=== PATIENT | female | born 1950 | race Caucasian/White ===

== ENCOUNTER → 2020-02-20 | Outpatient (CLI) | payer MEDICARE ==
[2020-02-20 12:54] LABS: HCT 39.3 % (34.0-46.0); HGB 13.2 gm/dL (11.4-16.0); MCHC 33.6 g/dL (31.0-37.0); MCV 98.3 fL (80.0-100.0); Mean Platelet Volume 7.4; Platelet Count 192 k/uL (150-450); RDW 15.9 % (11.5-15.5); WBC 3.7 k/uL (3.8-10.6)
[2020-02-20 13:02] LABS: ALT 13 U/L (4-34); AST 20 U/L (14-36); African American GFR (CKD) >90 (>60 ml/min/1.73 sqM); Albumin 4.1 g/dL (3.5-5.0); Alkaline Phosphatase 102 U/L (38-126); Anion Gap 6 mmol/L; Blood Urea Nitrogen 14 mg/dL (7-17); Calcium 9.5 mg/dL (8.4-10.2); Carbon Dioxide 28 mmol/L (22-30); Chloride 102 mmol/L (98-107); Cholesterol 150 mg/dL (<200); Glucose 97 mg/dL (74-99); HDL Cholesterol 69 mg/dL (40-60); LDL Cholesterol,Calculated 55 mg/dL (0-99); Non-African American GFR(CKD) >90 (>60 ml/min/1.73 sqM); Potassium 4.4 mmol/L (3.5-5.1); Sodium 136 mmol/L (137-145); Total Bilirubin 0.6 mg/dL (0.2-1.3); Total Protein 6.2 g/dL (6.3-8.2); Triglycerides 131 mg/dL (<150)
[2020-02-20 13:04] LABS: INR 0.9 (<1.2); Partial Thromboplastin Time 23.3 sec (22.0-30.0); Prothrombin Time 9.9 sec (9.0-12.0)
[2020-02-20 13:09] LABS: Appearance,Urine Clear (Clear); Bilirubin,Urine Negative (Negative); Blood,Urine Negative (Negative); Color,Urine Light Yellow; Glucose,Urine (UA) Negative (Negative); Ketones,Urine Negative (Negative); Leukocyte Esterase,Urine Negative (Negative); Nitrite,Urine Negative (Negative); Protein,Urine Negative (Negative); Specific Gravity,Urine 1.005 (1.001-1.035); Urobilinogen,Urine <2.0 mg/dL (<2.0)
[2020-02-20 13:18] LABS: T4, Free (Free Thyroxine) 1.01 ng/dL (0.78-2.19)
== END | disposition home or self-care (01) ==
LOC: LABPAT 11:46
PROVIDERS: ATTEND Orthopaedic Surgery
DX: Z01.818 Encounter for other preprocedural examination (principal); M16.11 Unilateral primary osteoarthritis, right hip; I25.10 Atherosclerotic heart disease of native coronary artery without angina pectoris; E55.9 Vitamin D deficiency, unspecified; Z13.220 Encounter for screening for lipoid disorders; E05.90 Thyrotoxicosis, unspecified without thyrotoxic crisis or storm; Z01.812 Encounter for preprocedural laboratory examination
CPT/HCPCS: 80053; 80061; 81003; 82306; 84439; 84443; 85027; 85610; 85730; 87070

== ENCOUNTER 2020-02-28 05:54 | Day surgery (SDC) | payer MEDICARE ==
[2020-02-24 10:06] VITALS: BMI 35.7
[~2020-02-28 05:54] MED LIST: ACETAMINOPHEN TAB 500 MG TAB PO ONE; DEXAMETHASONE SOD PHOSPHATE 10 MG/ML 1 ML VIAL IV ONE; GABAPENTIN 300 MG CAP PO ONE; HYDROmorphone 0.5 MG/0.5 ML SYRINGE IVP PRN; LIDOCAINE 1% (10MG/ML) FOR IV START INTRADERMA PRN; MELOXICAM 7.5 MG TAB PO ONE; MIDAZOLAM 2 MG/2 ML VIAL IV PRN; ONDANSETRON 4 MG/2 ML VIAL IVP ONE; TRANEXAMIC ACID 1,000 MG in SODIUM CHLORIDE 0.9% 100 ML IVPB ONE
[2020-02-28] MEDS: LACTATED RINGERS 1,000 ML IV SCH (06:30)
[2020-02-28] MEDS ORDERED: HEPARIN SODIUM,PORCINE 10,000 UNIT/ML 1 ML VIAL ONE (06:52)
[2020-02-28] MEDS ORDERED: SODIUM CHLORIDE 0.9% IRRIG 1,000 ML BTL IRRIGATION ONE (06:52)
[2020-02-28] MEDS ORDERED: ceFAZolin 3,000 MG in SODIUM CHLORIDE 0.9% IRRIGATIO 3,000 ML IRRIGATION ONE (06:57)
[2020-02-28] MEDS: ROPIVACAINE 246.25 MG, EPINEPHrine 0.5 MG, KETOROLAC 30 MG, cloNIDine HCL/PF 80 MCG, WA... MISCELLANE ONE ×10 (07:29→08:06)
[2020-02-28] MEDS ORDERED: LACTATED RINGERS 1,000 ML IV ONE (08:24)
--- NOTE | 2020-02-28 08:38 | P.OP ---
Date of Procedure: 02/28/20 Preoperative Diagnosis: Severe osteoarthritis right hip Postoperative Diagnosis: Severe osteoarthritis right hip Procedure(s) Performed: Right total hip arthroplasty with a direct anterior approach Implants: Montero and nephew Polarstem size 2 standard Montero & Nephew R3, 3 hole acetabular shell, 48 mm Montero & Nephew reflection 6.5 mm cancellus screw, 20 mm 2 Montero & Nephew R3, XLPE 20 acetabular liner Montero & Nephew Oxinium femoral head 32 m, +0 All components were press-fit. The articulation is Oxinium on polyethylene. Anesthesia: spinal Surgeon: Arsh Stern Sausage Wrapper #1: Coco Tsai Estimated Blood Loss (ml): 200 (68 mL returned with Cell Saver) Pathology: other (Femoral head) Condition: stable Disposition: PACU Indications for Procedure: After failure of conservative treatment we discussed the surgical and nonsurgical treatment options at length. Patient wishes to proceed with a total hip arthroplasty with a direct anterior approach. Complications specific to this procedure were discussed at length, including but not limited to infection, leg length discrepancy, dislocation, and nerve injury. Covid-19 was also discussed at length with the patient, and they are aware of the current policies and procedures. The patient was given the option of delaying surgery, but they elect to proceed knowing these risks. Patient is aware of all these complications and informed consent was obtained Operative Findings: The operative findings are consistent with severe osteoarthritis of the right hip Description of Procedure: Patient was seen and evaluated in the preoperative area, consent was reviewed, and the surgical site was marked with a skin marker. Patient was then brought to the operating room and given prophylactic antibiotics intravenously. 1 g of Tranexamic acid was also given. A spinal anesthetic was administered by the anesthesia department. The patient was then placed on the Lorraine table with the bony prominences well-padded. The hip area was then prepped and draped in usual sterile fashion. A universal timeout was then performed, which confirmed the patient's name, surgical site, ALLERGIES, and procedure being performed. Next the incision site was located at 1 cm distal and 1 cm lateral to the anterior superior iliac spine. The skin and subcutaneous tissues were sharply incised. Incision was carefully dissected down to the fascia overlying the tensor fascia julio muscle. This fascia was then incised in line with the incision. Next, using blunt finger dissection, the tensor fascia julio muscle was dissected off its investing fascia. The muscle was then carefully retracted laterally with a cobra retractor over the lateral neck of the femur. Next, the circumflex vessels were identified and cauterized using the AquaMantis device. The anterior hip capsule was then exposed. The capsule was then opened and an inverted T fashion. Cobra retractors were then placed intracapsularly. The proximal femur was then visualized. The femoral neck was then osteotomized appropriate level above the lesser trochanter. Small amount of traction was placed with the Lorraine table. A small wedge of bone was then removed from the remaining femoral head. Next, using a corkscrew femoral head was easily removed from the acetabulum. On gross visual inspection, the femoral head had complete loss of articular cartilage in multiple periarticular osteophytes. Attention was then turned to the acetabulum. the acetabulum was exposed and any remaining labrum was excised. Sequential reaming of the acetabulum was performed using fluoroscopic guidance. When the appropriate size was reached, a trial was then placed. The position and fit of the trial was checked with fluoroscopy. The trial was then removed. Then, using fluoroscopic guidance, the final implant was impacted at 20 of anteversion and 40 of abduction, and fully seated in the acetabulum. 2 screws were then placed in the acetabulum. Again fluoroscopy was used to check position of the screws. Next, the liner was then impacted, with a 20 elevated liner located in the anterior superior quadrant. Component locking was confirmed. Attention was then directed to the femur. With the aid of the Lorraine table, the femur was externally rotated to approximately 130, extended, and abducted under the opposite leg. A side hook was then placed under the proximal femur, and the side hook elevator was used to elevate the proximal femur. Retractors were then placed. A capsular release was performed, as well as a release of the conjoined tendon, which afforded excellent visualization of the proximal femur. Next, a box osteotome was used to lateralize the proximal femur. A upper and bottom lacer hand was then used to locate the femoral canal. Sequential broaching was then performed with appropriate size which afforded excellent fixation in the proximal femur. A trial was then placed with appropriate head and neck, and the hip was gently reduced with the aid of the Lorraine table. Fluoroscopy was then used to check position of the components, as well as to ensure equal leg lengths. The hip was then gently dislocated and the trials were then removed. Final implants were then impacted and the hip was again reduced. Final fluoroscopic x-rays confirmed that the components were in anatomic position, as well as equal leg lengths. The hip was also taken through range of motion, and found to be stable. The hip was then copiously irrigated with antibiotic solution with pulsatile lavage. The hip was then irrigated with Irrisept solution. The soft tissues were then injected with a ropivacaine solution, which consisted of 246.25 mg of ropivacaine, 0.5 mg of epinephrine, 30 mg of Toradol, 80 g of clonidine, and 48.45 mL of sterile water, for a total of 100 mL of fluid injected. A second dose of 1 g of Tranexamic acid was also given. the fascia was then closed with 2-0 strata fix suture. The subcutaneous tissue was closed with 3-0 Vicryl. The subcuticular tissue was closed with 3-0 strata fix suture. The skin was then closed with Dermabond glue and a sterile silver dressing. The patient was then transferred to the recovery room in stable condition. The shampoo assistant COLTON Rodriges was required due to the complexity of surgery, and the need for skilled surgical aide for positioning, draping, exposure, retraction, and closure of the wound.
[2020-02-28] MEDS ORDERED: NALOXONE 0.4 MG/ML 1 ML VIAL IV PRN (09:06)
[2020-02-28] MEDS ORDERED: MAGNESIUM HYDROXIDE 2,400 MG/10 ML CUP PO PRN (09:06)
[2020-02-28] MEDS ORDERED: HYDROmorphone 0.5 MG/0.5 ML SYRINGE IVP PRN ×2 (09:06)
[2020-02-28] MEDS ORDERED: ONDANSETRON 4 MG/2 ML VIAL IVP PRN (09:06)
--- NOTE | 2020-02-28 09:08 | FL ---
EXAMINATION TYPE: FL guidance operating room, XR Hip Limited RT DATE OF EXAM: 02/28/2020 COMPARISON: NONE HISTORY: 69-year-old female and tear total hip replacement on the right FINDINGS: 2 intraoperative images during right total hip arthroplasty. FLUOROSCOPY Fluoroscopy time of 59 seconds seconds was used during anterior total right hip thoracoplasty. 2 maribell ge/s document/s the procedure. IMPRESSION: Intraoperative fluoroscopy as above.
[2020-02-28] MEDS ORDERED: HYDROcodone/APAP 7.5-325MG 1 EACH TAB PO PRN (09:12)
--- NOTE | 2020-02-28 10:32 | XR ---
EXAMINATION TYPE: XR Hip Limited RT DATE OF EXAM: 02/28/2020 Comparison: None Clinical History: 69-year-old female post op Findings: Image shows placement of right hip alert plasty. Both acetabular cup and femoral stem components of t he prosthesis are well seated without prosthetic fracture. Alignment grossly anatomic. Scattered soft tissue air related to recent operation. Impression: Uncomplicated postoperative appearance right total hip arthroplasty.
[2020-02-28] MEDS: SODIUM CHLORIDE 0.9% 1,000 ML IV SCH (11:54)
[2020-02-28] MEDS: HYDROmorphone 0.5 MG/0.5 ML SYRINGE IVP PRN (14:17)
[2020-02-28] MEDS: HYDROcodone/APAP 7.5-325MG 1 EACH TAB PO PRN (18:07)
[2020-02-28] MEDS: ASPIRIN 325 MG TAB PO SCH (20:43)
[2020-02-28] MEDS ORDERED: SENNOSIDES-DOCUSATE SODIUM 1 EACH TAB PO SCH (21:00)
[2020-02-29] MEDS: HYDROcodone/APAP 7.5-325MG 1 EACH TAB PO PRN ×3 (00:09→13:01)
[2020-02-29] MEDS: SODIUM CHLORIDE 0.9% 1,000 ML IV SCH ×2 (01:55→06:55)
[2020-02-29] MEDS: LACTATED RINGERS 1,000 ML IV SCH (02:02)
[2020-02-29] MEDS: HYDROmorphone 0.5 MG/0.5 ML SYRINGE IVP PRN (02:22)
[2020-02-29 03:15] VITALS: PULSE 68; TEMP 98.7
[2020-02-29 03:35] VITALS: RESP 16
[2020-02-29] MEDS: ASPIRIN 325 MG TAB PO SCH (06:57)
[2020-02-29 07:13] LABS: Basophils % (A) 0 %; Eosinophils % (A) 0 %; HCT 29.7 % (34.0-46.0); Hypochromasia Slight; Lymphocytes # (A) 0.6 k/uL (1.0-4.8); Lymphocytes % (A) 8 %; MCHC 33.1 g/dL (31.0-37.0); MCV 99.6 fL (80.0-100.0); Macrocytosis Slight; Mean Platelet Volume 7.5; Monocytes # (A) 0.5 k/uL (0-1.0); Monocytes % (A) 6 %; Neutrophils # (A) 6.1 k/uL (1.3-7.7); Neutrophils % (A) 84 %; Platelet Count 201 k/uL (150-450); RBC 2.98 m/uL (3.80-5.40); WBC 7.3 k/uL (3.8-10.6)
[2020-02-29 07:16] LABS: HGB 9.8 gm/dL (11.4-16.0)
[2020-02-29 07:57] VITALS: BP 107/59
--- NOTE | 2020-02-29 08:26 | P.DS ---
Providers Expected date of discharge: 02/29/20 Attending physician: Arsh Stern Consults: 02/28/20 09:06 Consult Physician Routine Consulting Provider: Adelfo Cochran Consult Reason/Comments: medical management Do you want consulting provider notified?: Yes Primary care physician: Adelfo Cochran - Discharge Diagnosis(es) (1) Osteoarthritis of right hip Current Visit: Yes Status: Acute (2) S/P total hip arthroplasty Current Visit: Yes Status: Acute Hospital Course: This is a 69-year-old female with known history of degenerative arthritis of the right hip. The patient presents for evaluation. After discussion and consideration patient elects to proceed with total hip arthroplasty. The patient is seen preoperatively by Dr. Stern and medically cleared for surgery by their primary care physician. Patient is admitted to [facility] on 02/28/2020 for total hip arthroplasty. The procedures performed without complication or sequelae. The patient is doing well postoperatively. Labs and vital signs are stable on day of discharge. On day of discharge patient's hip incision is healing well. There is minimal erythema. There is no drainage noted at this time. There is minimal soft tissue swelling to the hip and thigh. Patient has full foot and ankle motion without difficulty or pain. Calf is soft and nontender to palpation. Neurovascular status to the right lower extremity is intact. Patient is discharged home in good condition. Patient has a pain contract with her family physician who will prescribe postoperative pain medication. Please see [facility] rec for accurate list of home medications. Plan - Discharge Summary Discharge Rx Participant: Yes New Discharge Prescriptions: New Aspirin 325 mg PO BID #60 tab No Action Ascorbic Acid [Vitamin C] 500 mg PO DAILY Estrogens, Conjugated Cream [Premarin Cream] 1 gm VAGINAL DIRECTED Nitroglycerin Sl Tabs [Nitrostat] 0.4 mg SUBLINGUAL Q5M PRN PRN Reason: Angina Enalapril [Vasotec] 10 mg PO HS DULoxetine HCL [Cymbalta] 30 mg PO BID Cyclobenzaprine [Flexeril] 10 mg PO TID Tolterodine [Detrol] 2 mg PO BID Lansoprazole 60 mg PO HS Celecoxib [CeleBREX] 200 mg PO DAILY Atorvastatin [Lipitor] 20 mg PO AC-SUPPER guaiFENesin 400 mg PO QID PRN PRN Reason: mucous Lecithin 1,200 mg PO DAILY HYDROcodone/APAP 7.5-325MG [Alvarado 7.5-325] 1 tab PO TID Flaxseed Oil 1,000 mg PO DAILY Estradiol [Vagifem] 10 mcg VG DIRECTED Diltiazem HCl [Cardizem CD] 360 mg PO QAM Calcium Carbonate/Vitamin D3 [Calcium 600 mg-Vit D3 10Mcg (400 Unit)] 1 each PO DAILY Aspirin [Adult Low Dose Aspirin EC] 81 mg PO DAILY Discharge Medication List Ascorbic Acid [Vitamin C] 500 mg PO DAILY 02/24/20 [History] Aspirin [Adult Low Dose Aspirin EC] 81 mg PO DAILY 02/24/20 [History] Atorvastatin [Lipitor] 20 mg PO AC-SUPPER 02/24/20 [History] Calcium Carbonate/Vitamin D3 [Calcium 600 mg-Vit D3 10Mcg (400 Unit)] 1 each PO DAILY 02/24/20 [History] Celecoxib [CeleBREX] 200 mg PO DAILY 02/24/20 [History] Cyclobenzaprine [Flexeril] 10 mg PO TID 02/24/20 [History] DULoxetine HCL [Cymbalta] 30 mg PO BID 02/24/20 [History] Diltiazem HCl [Cardizem CD] 360 mg PO QAM 02/24/20 [History] Enalapril [Vasotec] 10 mg PO HS 02/24/20 [History] Estradiol [Vagifem] 10 mcg VG DIRECTED 02/24/20 [History] Estrogens, Conjugated Cream [Premarin Cream] 1 gm VAGINAL DIRECTED 02/24/20 [History] Flaxseed Oil 1,000 mg PO DAILY 02/24/20 [History] HYDROcodone/APAP 7.5-325MG [Alvarado 7.5-325] 1 tab PO TID 02/24/20 [History] Lansoprazole 60 mg PO HS 02/24/20 [History] Lecithin 1,200 mg PO DAILY 02/24/20 [History] Nitroglycerin Sl Tabs [Nitrostat] 0.4 mg SUBLINGUAL Q5M PRN 02/24/20 [History] Tolterodine [Detrol] 2 mg PO BID 02/24/20 [History] guaiFENesin 400 mg PO QID PRN 02/24/20 [History] Aspirin 325 mg PO BID #60 tab 02/29/20 [Rx] Follow up Appointment(s)/Referral(s): Arsh Stern DO [Doctor of Osteopathic Medicine] - 2 Weeks Activity/Diet/Wound Care/Special Instructions: Weightbearing as tolerated with walker. Leave dressing intact. Dressing may be removed by home care nurse or by patient in 10 days. May shower with dressing on. Please take aspirin 325mg twice daily for 30 days to prevent blood clots. Recommend use of compression stockings daily until follow up to help prevent swelling and blood clots. May remove at night before sleeping. Please follow-up with [facility] in 2 weeks and call with any questions or concerns, . Discharge Disposition: HOME WITH HOME HEALTH SERVICES
[2020-02-29] MEDS ORDERED: MELOXICAM 7.5 MG TAB PO SCH (09:00)
[2020-02-29] MEDS ORDERED: NITROGLYCERIN SL TABS 0.4 MG TAB SUBLINGUAL PRN (13:08)
[2020-02-29] MEDS ORDERED: guaiFENesin SYRUP 100MG/5ML 200 MG/10 ML CUP PO PRN (13:08)
[2020-02-29] MEDS ORDERED: CELECOXIB 200 MG PO SCH (13:15)
[2020-02-29] MEDS ORDERED: ASPIRIN 81 MG PO SCH (13:15)
[2020-02-29] MEDS ORDERED: DILTIAZEM CD 180 MG CAP.ER.24H PO SCH (13:30)
[2020-02-29] MEDS ORDERED: OXYBUTYNIN 10 MG TAB.ER.24 PO SCH (13:30)
[2020-02-29] MEDS ORDERED: DULoxetine HCL 30 MG CAPSULE.DR PO SCH (13:30)
[2020-02-29 13:42] LABS: Anisocytosis Slight; Basophils % (A) 0 %; Eosinophils % (A) 0 %; HCT 31.3 % (34.0-46.0); HGB 10.1 gm/dL (11.4-16.0); Hypochromasia Slight; Lymphocytes # (A) 0.6 k/uL (1.0-4.8); Lymphocytes % (A) 9 %; MCH 32.3 pg (25.0-35.0); MCHC 32.2 g/dL (31.0-37.0); MCV 100.4 fL (80.0-100.0); Macrocytosis Slight; Mean Platelet Volume 7.9; Monocytes # (A) 0.4 k/uL (0-1.0); Monocytes % (A) 7 %; Neutrophils # (A) 5.5 k/uL (1.3-7.7); Neutrophils % (A) 84 %; Platelet Count 208 k/uL (150-450); RBC 3.11 m/uL (3.80-5.40); RDW 16.1 % (11.5-15.5); WBC 6.6 k/uL (3.8-10.6)
[2020-02-29 14:10] LABS: ALT 13 U/L (4-34); AST 29 U/L (14-36); African American GFR (CKD) >90 (>60 ml/min/1.73 sqM); Albumin 3.4 g/dL (3.5-5.0); Albumin/Globulin Ratio 1.6; Alkaline Phosphatase 76 U/L (38-126); Anion Gap 5 mmol/L; Blood Urea Nitrogen 13 mg/dL (7-17); Calcium 8.8 mg/dL (8.4-10.2); Carbon Dioxide 28 mmol/L (22-30); Chloride 100 mmol/L (98-107); Globulin 2.1 g/dL; Glucose 117 mg/dL (74-99); Non-African American GFR(CKD) >90 (>60 ml/min/1.73 sqM); Potassium 3.9 mmol/L (3.5-5.1); Sodium 133 mmol/L (137-145); Total Bilirubin 0.4 mg/dL (0.2-1.3); Total Protein 5.5 g/dL (6.3-8.2)
[2020-02-29] MEDS ORDERED: HYDROcodone/APAP 7.5-325MG 1 EACH TAB PO SCH (16:00)
[2020-02-29] MEDS ORDERED: ATORVASTATIN 20 MG TAB PO SCH (17:30)
[2020-02-29] MEDS ORDERED: PANTOPRAZOLE 40 MG TABLET PO SCH (21:00)
[2020-02-29] MEDS ORDERED: lisinopriL 20 MG TAB PO SCH (21:00)
--- NOTE | 2020-02-29 22:34 | PN ---
PROGRESS NOTE DATE OF SERVICE: 02/29/2020 CHIEF COMPLAINT: Status post right NICK. HISTORY OF PRESENT ILLNESS: This lady is doing well. Vital signs are good. She is not having an unusual amount of pain. She has had no sweats, fever, chills, cough, etc. PHYSICAL EXAMINATION: Her vital signs are normal. She is afebrile. Head, ears, eyes, nose and mouth are normal. Neck veins are not distended. The chest is clear. There are no rales. Cardiac exam is normal sinus rhythm. Abdomen is soft. Dressing is dry. IMPRESSION: Status post right total hip arthroplasty. PLAN: Probably home today. MMODL / IJN: [id number] /
--- NOTE | 2020-02-29 22:47 | CONS ---
CONSULTATION CHIEF COMPLAINT: Arthritis of the right hip. HISTORY OF PRESENT ILLNESS: The is the first known admission for this 69-year-old white female who comes in for an elective NICK. She does have a history of coronary artery disease and has had no symptoms of late. REVIEW OF SYSTEMS: She has had no headaches, neurologic problems, change in vision or hearing, chest pain, palpitations, orthopnea, PND, cough, hemoptysis, sputum production, abdominal pain, nausea, vomiting, hematemesis, melena, hematochezia, colitis, diverticulosis, diverticulitis, hemorrhoids, jaundice, renal failure, hematuria, frequency, urgency, dysuria, diabetes, etc. 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 Medications include: 1. Vitamin D3. 2. Magnesium 500 mg once a day. 3. Vitamin A 2400 mcg a day. 4. Ferrous sulfate 325 once a day. 5. Vitamin C 500 once a day. 6. Calcium plus vitamin D3 once a day. 7. 81 mg of aspirin. 8. Lansoprazole 15 mg once a day. 9. [place] 7.5 mg 3 times a day. 10.Tolterodine 2 mg twice a day. 11.Enalapril 10 mg once a day. 12.Cyclobenzaprine 10 mg once a day. 13.Duloxetine 30 mg once a day. 14.Diltiazem 360 mg once a day. 15.Celebrex 200 mg once a day. 16.Meclizine 12.5 one to two t.i.d. p.r.n. 17.Atorvastatin 20. She does not smoke. She drinks alcohol occasionally. PHYSICAL EXAMINATION: Blood pressure 132/60 with a pulse 96 and regular, respirations of 18 and temperature 97.9. In general she appeared to be well developed, well nourished, in no acute distress. Skin color was normal and skin was warm and dry. Lymph nodes were not enlarged. Head, ears, eyes, nose, mouth and throat were normal and neck veins were not distended. Carotids were normal. There were no bruits. Chest was clear to auscultation and percussion. Cardiac exam demonstrated normal sinus rhythm with no murmurs or extra sounds. The abdomen was soft and nontender without any masses or visceromegaly. Bowel sounds were present. Extremities were normal except for the irritability in the right hip. Pulses were good. Neurologically she was intact. She is admitted to the hospital with the diagnoses: 1. Osteoarthritis of the right hip. 2. Hypertension. 3. Coronary artery disease. 4. Hyperlipidemia. 5. History of gastroesophageal reflux disease. RECOMMENDATIONS: None. She is cleared for surgery. Thank you. Respectfully, Adelfo Cochran II, M.D. ANGELIC / ARELI: [id number] /
== END 2020-02-29 13:31 | disposition home health service (06) ==
LOC: OR 05:54 → 4SSUR 08:29 → OR 02-29 13:31
PROVIDERS: ATTEND Orthopaedic Surgery
DX: M16.11 Unilateral primary osteoarthritis, right hip (principal); M25.751 Osteophyte, right hip; I25.10 Atherosclerotic heart disease of native coronary artery without angina pectoris; I11.9 Hypertensive heart disease without heart failure; E78.2 Mixed hyperlipidemia; R00.2 Palpitations; K21.9 Gastro-esophageal reflux disease without esophagitis; F32.9 Major depressive disorder, single episode, unspecified; R26.81 Unsteadiness on feet; G47.419 Narcolepsy without cataplexy; K58.9 Irritable bowel syndrome, unspecified; Z90.5 Acquired absence of kidney; L98.9 Disorder of the skin and subcutaneous tissue, unspecified; N32.9 Bladder disorder, unspecified; G47.33 Obstructive sleep apnea (adult) (pediatric); Z99.89 Dependence on other enabling machines and devices; Z96.653 Presence of artificial knee joint, bilateral; Z96.611 Presence of right artificial shoulder joint; Z90.710 Acquired absence of both cervix and uterus; Z97.3 Presence of spectacles and contact lenses; Z90.49 Acquired absence of other specified parts of digestive tract; Z98.890 Other specified postprocedural states; Z82.49 Family history of ischemic heart disease and other diseases of the circulatory system; Z83.3 Family history of diabetes mellitus; Z79.1 Long term (current) use of non-steroidal anti-inflammatories (NSAID); Z79.82 Long term (current) use of aspirin; Z79.890 Hormone replacement therapy; Z79.891 Long term (current) use of opiate analgesic; Z79.899 Other long term (current) drug therapy; Z91.041 Radiographic dye allergy status; Z91.048 Other nonmedicinal substance allergy status
CPT/HCPCS: 27130; 97116; 97110; 97161; 97165; 86891; 86900; 86901; 80053; 85025; 86850; 88300; 73501; C1776; J0171; J1644; J1100; J0690 ×2; J2405; J1885; J2795; J0735; J1170 ×2

== ENCOUNTER → 2020-10-12 | Outpatient (CLI) | payer MEDICARE ==
[2020-10-12 13:00] LABS: ALT 11 U/L (4-34); AST 24 U/L (14-36); African American GFR (CKD) >90 (>60 ml/min/1.73 sqM); Albumin 4.2 g/dL (3.5-5.0); Alkaline Phosphatase 81 U/L (38-126); Anion Gap 5 mmol/L; Blood Urea Nitrogen 15 mg/dL (7-17); Calcium 9.6 mg/dL (8.4-10.2); Carbon Dioxide 30 mmol/L (22-30); Chloride 101 mmol/L (98-107); Glucose 106 mg/dL (74-99); Non-African American GFR(CKD) 88 (>60 ml/min/1.73 sqM); Potassium 4.9 mmol/L (3.5-5.1); Sodium 136 mmol/L (137-145); Total Bilirubin 0.4 mg/dL (0.2-1.3); Total Protein 6.2 g/dL (6.3-8.2)
[2020-10-12 13:01] LABS: INR 0.9 (<1.2); Partial Thromboplastin Time 22.8 sec (22.0-30.0)
[2020-10-12 13:22] LABS: Appearance,Urine Clear (Clear); Bacteria,Urine Many /hpf; Bilirubin,Urine Negative (Negative); Blood,Urine Negative (Negative); Color,Urine Yellow; Glucose,Urine (UA) Negative (Negative); Ketones,Urine Negative (Negative); Leukocyte Esterase,Urine Moderate (Negative); Mucus,Urine Rare /hpf; Nitrite,Urine Negative (Negative); PH, Urine 5.5 (5.0-8.0); Protein,Urine Negative (Negative); RBC,Urine <1 /hpf (0-5); Specific Gravity,Urine 1.014 (1.001-1.035); Squamous Epithelial Cell,Urine <1 /hpf (0-4); Urobilinogen,Urine <2.0 mg/dL (<2.0); WBC,Urine 4 /hpf (0-5)
[2020-10-12 13:27] LABS: Anisocytosis Slight; HCT 40.6 % (34.0-46.0); MCH 31.1 pg (25.0-35.0); MCV 97.1 fL (80.0-100.0); Mean Platelet Volume 7.6; Platelet Count 224 k/uL (150-450); RBC 4.18 m/uL (3.80-5.40); RDW 16.5 % (11.5-15.5); WBC 4.3 k/uL (3.8-10.6)
== END | disposition home or self-care (01) ==
LOC: LABPAT 11:43
PROVIDERS: ATTEND Orthopaedic Surgery
DX: Z01.812 Encounter for preprocedural laboratory examination (principal); M19.012 Primary osteoarthritis, left shoulder; Z79.01 Long term (current) use of anticoagulants
CPT/HCPCS: 36415; 80053; 81001; 85027; 85610; 85730; 87070

== ENCOUNTER 2020-10-30 07:55 | Day surgery (SDC) | payer MEDICARE ==
[2020-10-25 12:04] VITALS: BMI 36.6
[~2020-10-30 07:55] MED LIST changes: -ACETAMINOPHEN TAB 500 MG TAB PO ONE; -DEXAMETHASONE SOD PHOSPHATE 10 MG/ML 1 ML VIAL IV ONE; -GABAPENTIN 300 MG CAP PO ONE; +GABAPENTIN 300 MG CAP PO PRN; -HYDROmorphone 0.5 MG/0.5 ML SYRINGE IVP PRN; +LACTATED RINGERS 1,000 ML IV SCH; -LIDOCAINE 1% (10MG/ML) FOR IV START INTRADERMA PRN; -MELOXICAM 7.5 MG TAB PO ONE; -ONDANSETRON 4 MG/2 ML VIAL IVP ONE; -TRANEXAMIC ACID 1,000 MG in SODIUM CHLORIDE 0.9% 100 ML IVPB ONE; +TRANEXAMIC ACID 1,000 MG in SODIUM CHLORIDE 0.9% 100 ML IVPB PRN
[2020-10-30] MEDS: ONDANSETRON 4 MG/2 ML VIAL IVP ONE ×2 (08:40→08:52)
[2020-10-30] MEDS: DEXAMETHASONE SOD PHOSPHATE 4 MG/ML 1 ML VIAL IV ONE ×2 (08:40→08:52)
[2020-10-30] MEDS: MELOXICAM 7.5 MG TAB PO PRN ×2 (08:40→08:52)
[2020-10-30] MEDS: ACETAMINOPHEN TAB 500 MG TAB PO PRN ×2 (08:40→08:50)
[2020-10-30] MEDS ORDERED: fentaNYL (PF) 50 MCG/ML 2 ML AMP IVP ONE ×2 (08:45)
[2020-10-30] MEDS ORDERED: MIDAZOLAM 2 MG/2 ML VIAL IVP ONE (08:45)
[2020-10-30] MEDS ORDERED: HYDROmorphone 0.2 MG/1 ML SYRINGE IVP PRN (08:52)
[2020-10-30] MEDS ORDERED: ONDANSETRON 4 MG/2 ML VIAL IVP PRN (08:52)
[2020-10-30] MEDS ORDERED: HYDROmorphone 0.5 MG/0.5 ML SYRINGE IVP PRN ×2 (08:52)
[2020-10-30] MEDS ORDERED: HYDROcodone/APAP 7.5-325MG 1 EACH TAB PO PRN ×2 (08:53)
[2020-10-30] MEDS ORDERED: SUCCINYLCHOLINE CHLORIDE 100 MG/5 ML SYR IV ONE (08:57)
[2020-10-30] MEDS ORDERED: GLYCOPYRROLATE 0.2 MG/ML 2 ML VIAL ONE (08:57)
[2020-10-30] MEDS ORDERED: SODIUM CHLORIDE 0.9% 100 ML BAG ONE (08:57)
[2020-10-30] MEDS ORDERED: DEXAMETHASONE SOD PHOSPHATE 4 MG/ML 1 ML VIAL ONE (08:57)
[2020-10-30] MEDS ORDERED: PROPOFOL 10 MG/ML 20 ML VIAL IV ONE (08:57)
[2020-10-30] MEDS ORDERED: ROCURONIUM 10 MG/ML (5 ML VIAL) IV ONE (08:57)
[2020-10-30] MEDS ORDERED: LIDOCAINE 1% INJ 10MG/ML (20 ML MDV) ONE (08:57)
[2020-10-30] MEDS ORDERED: NEOSTIGMINE 1 MG/ML 10 ML VIAL ONE (08:57)
[2020-10-30] MEDS ORDERED: ROPIVACAINE 5 MG/ML 30 ML VIAL ONE (08:57)
[2020-10-30] MEDS ORDERED: TRANEXAMIC ACID 1,000 MG/10 ML VIAL ONE (08:57)
[2020-10-30] MEDS ORDERED: ceFAZolin 1,000 MG in SODIUM CHLORIDE 0.9% 1,000 ML IRRIGATION ONE (09:01)
--- NOTE | 2020-10-30 09:02 | P.ANPRN ---
Procedure Note - Anesthesia - Nerve Block Performed Left Interscalene Single Time Out Performed: Yes Date of Procedure: 10/30/20 Procedure Start Time: 08:45 Procedure Stop Time: 08:52 Location of Patient: PreOp Indication: Requested by Surgeon Specifically requested for management of pain by DrMalachi: Arsh Stern Sedation Type: Sedate with meaningful contact maintained Preparation: Sterile Prep Position: Supine Needle Types: Pajunk Needle Gauge: 21 Ultrasound used to visualize needle placement: Yes Ultrasound used to observe medication spread: Yes Injectate: 0.5% Ropivacaine (see comment for volume) (20 ml plus damethasone 4 mg) Blood Aspirated: No Pain Paresthesia on Injection Noted: No Resistance on Injection: Normal Image Stored and Saved: Yes Events: Uneventful and Well Tolerated
--- NOTE | 2020-10-30 10:26 | P.OP ---
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 Biomet comprehensive reverse shoulder system, humeral bearing, 36 mm, +3 Biomet comprehensive reverse shoulder system, mini humeral tray, 40 mm, +0, standard, titanium Biomet comprehensive reverse shoulder, Glenosphere mini baseplate, 25 mm Biomet comprehensive reverse shoulder, central screw, 6.5 mm x 25 mm Biomet comprehensive reverse shoulder, fixed locking screw, 4.75 x 20 mm, 15 mm, 15 mm, 20 mm. Biomet comprehensive reverse shoulder glenosphere, 36 mm, standard, titanium All components were press-fit. Articulation is titinum on polyethylene. Anesthesia: GETA Surgeon: Arsh Stern Cloth Washer #1: Coco Tsai Estimated Blood Loss (ml): 100 Pathology: other (Humeral head) Condition: stable Disposition: PACU Indications for Procedure: This is a patient that presented to my office with severe pain in the shoulder. X-rays demonstrated severe osteoarthritis of the glenohumeral joint of her shoulder. After failure of conservative treatment, we discussed the surgical and nonsurgical treatment options at length. The patient wishes to proceed with a reverse total shoulder arthroplasty. Patient is aware of the complications of the procedure which include but are not limited to infection, hardware failure, persistent pain, dislocation, and nerve injury. Informed consent was obtained. Operative Findings: The operative findings are consistent with severe osteoarthritis of left shoulder with a chronic rotator cuff tear Description of Procedure: The patient was seen in the preoperative area, consent was reviewed, and operative site was marked with a skin marker. An interscalene block was performed in the preoperative area by anesthesia. Patient was then brought to the operating room and given preoperative antibiotics intravenously. Patient was also given 1 g of Tranexamic acid intravenously. A general anesthetic was administered by the anesthesia department. The patient was then placed in a beachchair position with the bony prominences well-padded and the head secured. The shoulder was then prepped and draped in the usual sterile fashion. A universal timeout was then performed, which confirmed the patient's name, surgical site, ALLERGIES, and consent. A standard deltopectoral approach was performed. The skin and subcutaneous tissue was sharply dissected down to the deltoid fascia. The cephalic vein was then identified and retracted medially. The deltopectoral interval was then utilized to expose the subscapularis tendon. A retractor was then placed under the coracobrachialis tendon retracted medially, and the deltoid. The axillary nerve is palpated and protected throughout the procedure. The subscapularis tendon was then released and retracted medially. The humeral head was then exposed easily. The rotator cuff tendon was found to be completely torn and retracted. After the humeral head was exposed, osteophytes were removed with a Ronguer. Next the humeral stem was prepared. A starter reamer was then placed through the humeral head along the axis of the humeral shaft just lateral to the articular surface and just medial to the rotator cuff attachment. Sequential reaming was performed to the appropriate size reamer was inserted to the #between the 3 and 4 on the reamer. Next the intramedullary resection guide was placed on the reamer shaft. It was placed to the appropriate resection depth and angle of 30 of retroversion. Resection guide block was then secured with Steinmann pins. The proximal humerus was then resected. The block was then removed and the humerus was then broached sequentially to the same size as the reamer. After the broaches fully seated, the broach handle was removed and a broach cover was placed protect the humerus while the glenoid was prepared. Next attention was directed to the glenoid. The appropriate retractors were placed around the glenoid and any remaining soft tissues was removed from around the glenoid. After the glenoid was adequately exposed, the threaded glenoid guide was placed onto the glenoid and a 3.2 mm Steinmann pin was inserted in the glenoid at the desired angle and position, ensuring the pin engaged medial cortical wall. Next, the cannulated baseplate reamer was placed over the top of the Steinmann pin. The glenoid was then reamed to the appropriate depth. The glenoid reamer was then removed, leaving the Steinmann pin. The glenoid John Paul plate implant was placed on the end of the cannulated baseplate impactor. The baseplate was then impacted fully into the glenoid. Next the 6.5 mm central screw was then placed which afforded excellent fixation. The 4 peripheral locking screws were then drilled measured and placed. Next the appropriate glenosphere was opened and impacted into the glenoid baseplate. Attention was then redirected to the humerus. Next a trial humeral tray was placed in the shoulder was reduced. Shoulder was taken through a full range of motion and found to be stable. The shoulder was then gently dislocated, and the trial humerus and humeral tray were removed. The final humeral stem was impacted in the final humeral tray was impacted as well. Shoulder was then relocated. Again the shoulder was taken through a range of motion and found to have no instability. Shoulder was then irrigated with pulsatile lavage. The shoulder was then irrigated with Irrisept solution. A second dose of 1 g of Tranexamic acid was given. The subscapularis was then repaired with #1 Vicryl. The deltopectoral interval was then closed with #1 Vicryl as well. The subcutaneous tissues were closed with 3-0 Vicryl followed by 3-0 strata fix. Exofin skin glue was placed on the skin. A sterile Optifoam dressing was then applied, the patient was transported to the recovery room in an arm sling in stable condition. The plastic surgery assistant COLTON Rodriges was required due the complexity of surgery and the need for a skilled child life assistant.
[2020-10-30] MEDS: HYDROmorphone 0.5 MG/0.5 ML SYRINGE IVP PRN ×4 (10:38→11:18)
[2020-10-30 10:45] VITALS: TEMP 97.2
--- NOTE | 2020-10-30 13:14 | XR ---
EXAMINATION TYPE: XR shoulder limited LT DATE OF EXAM: 10/30/2020 CLINICAL HISTORY: Postoperative TECHNIQUE: 1 views of the left shoulder are obtained. COMPARISON: None. FINDINGS: Patient is status post a left total shoulder reverse arthroplasty. Soft tissue gas is indicative of r ecent postoperative status. IMPRESSION: Status post left reverse total shoulder arthroplasty.
[2020-10-30 16:02] VITALS: BP 118/76; PULSE 62; RESP 18
== END 2020-10-30 16:24 | disposition home or self-care (01) ==
LOC: OR 07:55
PROVIDERS: ATTEND Orthopaedic Surgery
DX: M19.012 Primary osteoarthritis, left shoulder (principal); M75.102 Unspecified rotator cuff tear or rupture of left shoulder, not specified as traumatic; I11.9 Hypertensive heart disease without heart failure; E78.2 Mixed hyperlipidemia; R00.2 Palpitations; H91.90 Unspecified hearing loss, unspecified ear; F32.9 Major depressive disorder, single episode, unspecified; R26.81 Unsteadiness on feet; K58.9 Irritable bowel syndrome, unspecified; Z97.3 Presence of spectacles and contact lenses; L98.9 Disorder of the skin and subcutaneous tissue, unspecified; G47.33 Obstructive sleep apnea (adult) (pediatric); I45.6 Pre-excitation syndrome; K44.9 Diaphragmatic hernia without obstruction or gangrene; G89.29 Other chronic pain; M54.9 Dorsalgia, unspecified; Z96.653 Presence of artificial knee joint, bilateral; Z96.611 Presence of right artificial shoulder joint; Z90.710 Acquired absence of both cervix and uterus; Z83.3 Family history of diabetes mellitus; Z82.49 Family history of ischemic heart disease and other diseases of the circulatory system; Z90.49 Acquired absence of other specified parts of digestive tract; Z98.890 Other specified postprocedural states; Z96.641 Presence of right artificial hip joint; Z79.82 Long term (current) use of aspirin; Z79.3 Long term (current) use of hormonal contraceptives; Z79.891 Long term (current) use of opiate analgesic; Z79.899 Other long term (current) drug therapy; Z79.1 Long term (current) use of non-steroidal anti-inflammatories (NSAID); Z91.041 Radiographic dye allergy status; Z88.8 Allergy status to other drugs, medicaments and biological substances; Z91.048 Other nonmedicinal substance allergy status
CPT/HCPCS: 23472; 64415; 76942; 88300; 73020; C1776; J2250; J1100; J2710; J0690 ×2; J2405; J2001; J3010; J2795; J0330; J2704; J1170

== ENCOUNTER → 2020-12-26 | Outpatient (CLI) | payer MEDICARE ==
--- NOTE | 2020-12-28 12:34 | MM ---
Reason for exam: screening (asymptomatic). Last mammogram was performed 2 years and 4 months ago. History: Patient is postmenopausal. Family history of breast cancer in paternal aunt and breast cancer in sister at age 62. Excisional biopsy of both breasts. Taking estrogen beginning at age 63. Physical Findings: A clinical breast exam by your physician is recommended on an annual basis and results should be correlated with mammographic findings. MG 3D Screening Mammo W/Cad Bilateral CC and MLO view(s) were taken. Prior study comparison: September 08, 2018, mammogram. March 11, 2017, mammogram. March 20, 2016, mammogram. There are scattered fibroglandular densities. There is chronic nodularity in the right breast. No significant changes when compared with prior studies. ASSESSMENT: Negative, BI-RAD 1 RECOMMENDATION: Routine screening mammogram of both breasts in 1 year.
== END | disposition home or self-care (01) ==
LOC: RADMAMWWP 10:30
PROVIDERS: ATTEND Obstetrics & Gynecology
DX: Z12.31 Encounter for screening mammogram for malignant neoplasm of breast (principal); Z78.0 Asymptomatic menopausal state; Z80.3 Family history of malignant neoplasm of breast
CPT/HCPCS: 77063; 77067

== ENCOUNTER → 2021-08-19 | Outpatient (CLI) | payer MEDICARE ==
--- NOTE | 2021-08-19 11:21 | MR ---
EXAMINATION TYPE: MR kidney wo con DATE OF EXAM: 08/19/2021 COMPARISON: None HISTORY: CYST OF KIDNEY, PAST HX OF ABD PAIN Standard multiplanar, multisequence MRI departmental protocol Multiplanar, multisequence images of the kidneys were acquired without contrast. FINDINGS: The patient could not tolerate the exam study was discontinued with 3 sequences obtained de monstrate severe motion artifact and nondiagnostic exam Grossly appears to be evidence of artifact in the left upper quadrant. Sizable hiatal hernia, degener ative changes spine and aorta grossly normal caliber. Suspect bilateral parapelvic renal cysts. No ov ert hydronephrosis as visualized given limitation exam. IMPRESSION: Nondiagnostic exam recommend follow-up CT scan given the patient could not tolerate MRI secondary to claustrophobia and discontinued exam
== END | disposition home or self-care (01) ==
LOC: RADMRIMAIN 08:19
PROVIDERS: ATTEND Family Medicine
DX: N28.1 Cyst of kidney, acquired (principal); N13.30 Unspecified hydronephrosis; Z53.8 Procedure and treatment not carried out for other reasons; F40.240 Claustrophobia

== ENCOUNTER → 2022-03-24 | Outpatient (CLI) | payer MEDICARE ==
--- NOTE | 2022-03-24 12:10 | XR ---
EXAMINATION TYPE: XR Hip Complete LT DATE OF EXAM: 03/24/2022 CLINICAL HISTORY: Pain. TECHNIQUE: AP and frogleg views of the left hip are obtained. COMPARISON: None. FINDINGS: There is no acute fracture/dislocation evident in the left hip. Mild to moderate acetabula r spurring. The hip joint space preserved. Femoral head shape maintained. The overlying soft tissue a ppears unremarkable. IMPRESSION: As above.
== END | disposition home or self-care (01) ==
LOC: RADXRMAIN 10:53
PROVIDERS: ATTEND Nurse Practitioner Family
DX: M25.552 Pain in left hip (principal); R26.81 Unsteadiness on feet
CPT/HCPCS: 73502

== ENCOUNTER → 2022-03-24 | Outpatient (CLI) | payer MEDICARE ==
--- NOTE | 2022-03-24 15:09 | FL ---
EXAMINATION TYPE: FL barium swallow w video DATE OF EXAM: 03/24/2022 CLINICAL HISTORY: 71-year-old female R1 3.10 Dysphagia. Patient with chest pain, hiatal hernia, and r eflux. TECHNIQUE: Deglutition study is performed utilizing thin liquid barium, honey and nectar thick liqui d barium, barium thick applesauce, and barium coated cracker. COMPARISON: None. Total fluoroscopy time: 1 minute 27 seconds. Total images: None. Real-time fluoroscopy support was provided to speech pathology. FINDINGS: The oral and pharyngeal phases show satisfactory initiation and propagation with all modalities teste d. Normal mastication is seen with solid modalities tested. There is no evidence of penetration or aspiration with any modality tested. No significant pharyngeal residue was appreciated. We note prominent solid residuals within the thoracic esophagus. Most of this clears after a thin liq uid bolus. Questionable mural based filling defects. Moderate to large hiatal hernia noted. IMPRESSION: 1. No evidence for penetration or aspiration. 2. Questionable mural based filling defects in the thoracic esophagus probably representing solid res iduals (secondary to dysmotility) that partially clear after a thin liquid bolus. Correlate with find ings on patient's recent EGD to exclude mucosal lesions. 3. Known moderate to large hiatal hernia. Please refer to speech therapist notes for further details if necessary.
== END | disposition home or self-care (01) ==
LOC: RADFLMAIN 10:47
PROVIDERS: ATTEND Internal Medicine
DX: R13.10 Dysphagia, unspecified (principal); K44.9 Diaphragmatic hernia without obstruction or gangrene
CPT/HCPCS: 74230

== ENCOUNTER → 2022-03-26 | Outpatient (CLI) | payer MEDICARE ==
--- NOTE | 2022-03-26 12:19 | FL ---
EXAMINATION TYPE: FL barium swallow DATE OF EXAM: 03/26/2022 11:52 AM COMPARISON: Barium swallow 03/24/2022 CLINICAL INDICATION:Female, 71 years old with history of R13.10 Dysphagia; TECHNIQUE: The procedure was explained and patient history elicited. All patient questions were ans wered prior to start of procedure. Multiple spot fluoroscopic images of the esophagus were obtained a fter the oral ingestion of effervescent crystals and liquid barium as the contrast agent. A central stores attendant ra diograph of the chest was obtained and reviewed. Fluoroscopic time: 1 minute 8 seconds Radiographs taken: 195 FINDINGS: There are bilateral shoulder arthroplasty changes which appear intact. Visualized portions of the chest are unremarkable. The esophagus demonstrates tertiary contractions with history without evidence for focal stricture, u lceration, or abnormal outpouching. Findings are worse in prone position. There is a moderate hiatal hernia. IMPRESSION: 1. Esophageal dysmotility most pronounced well prone which required upright position and water to shar[place] ar. 2. Moderate hiatal hernia.
== END | disposition home or self-care (01) ==
LOC: RADUSWWP 11:03
PROVIDERS: ATTEND Internal Medicine
DX: K22.4 Dyskinesia of esophagus (principal); K44.9 Diaphragmatic hernia without obstruction or gangrene
CPT/HCPCS: 74220

== ENCOUNTER → 2022-08-27 | Outpatient (CLI) | payer MEDICARE ==
--- NOTE | 2022-08-27 14:33 | P.PN ---
Subjective DATE: 08/27/2022 FOLLOW UP VISIT. Patient with obstructive sleep apnea hypopnea syndrome return to sleep center for follow-up visit. Information from previous visit have been reviewed. Recently patient had CPAP titration night with the falling multiple sleep latency test for objective for ablation symptoms of excessive daytime sleepiness. Patient continued to feel sleepiness while using sure CPAP equipment. I discuss results of sleep studies with patient in details. On CPAP respiration was on full control. Multiple sleep latency test on the following day showed pathological sleepiness with mean sleep latency 3.7 minutes without sleep onset REM periods. Patient is using PAP equipment every night for the whole night, getting PAP supplies in time. The patient does not have significant problems with the mask, PAP unit and humidification. [place] sleepiness scale is high 22. I checked information from PAP unit. PAP unit pressure 5-15, average 11.8 cm H2O. Usage is 100 % for more then 4 hours, average 7.1 hours per night. Leak is slightly high 37 l/m. Apnea Hypopnea Index is 2.1, which is normal. MEDICATIONS:1. [place] 2. Atorvastatin 20 mg once a day 3. Famotidine 40 mg once a day 4. Flexeril 10 mg once a day 5. Diltiazem 360 mg once a day 6. Enalapril 5 mg once a day 7. Detrol 2 mg twice a day During physical exam: GENERAL: A pleasant patient without any distress. VITAL SIGNS: BP 130/80, HR 67, RR 12, weight 221, temperature 98.2, oxygen saturation at room air 97 % . HEENT: PERRLA, EOMI.low position of soft palate, Mallapati 4 . NECK: Supple. No JVD. LUNGS: Clear to percussion and to auscultation. Good air exchange. No wheezing or rhonchi. HEART: S1, S2 regular. ABDOMEN: Soft and nontender.[] EXTREMITIES: No clubbing or cyanosis. HEAD REFRIGERATION ENGINEER: Awake, alert, and oriented x3. No focal deficit. Impressions: 1. Obstructive sleep apnea-hypopnea syndrome. Patient demonstrated great compliance with treatment, benefiting from treatment. 2. pathological sleepiness on MSLT 3.7 minutes, most probably narcolepsy. 3. Hypertension. 4. History of WPW syndrome. 5. History of anemia. 6. History of hiatal hernia. Plan: 1. Continue using PAP equipment every night for the whole night. 2. Patient will be started on treatment with modafinil. We will titrate the dose of modafinil starting from 50 mg in the morning up to 200 mg with a goal to prevent sleepiness during the day. 3. PAP unit should stay lower then position of the head. 4. Advised patient to remove all remaining water from humidifier canister daily and make it dry after each usage. Refill canister with fresh distilled water before each usage. 5. Sleep hygiene with regular time in bed for at least 8 hours. 6. Precautions related to driving. No driving if feel any sleepiness. 7. I will maintain prescription for PAP supplies including mask, tube, filters. 8. Watching weight. 9. Follow up visit in 3 months or earlier if patient has any problems. Thank you very much for allowing me to participate in the management of your patient. Greg Boo MD, PhD, FAASM. Diplomat of [employer], Sleep Medicine Board by [employer] Casino Duty Manager of [facility] [place]
== END ==
LOC: SLEEP 13:48
PROVIDERS: ATTEND Internal Medicine
DX: G47.33 Obstructive sleep apnea (adult) (pediatric) (principal); I10 Essential (primary) hypertension; Z79.899 Other long term (current) drug therapy; Z99.89 Dependence on other enabling machines and devices; Z86.79 Personal history of other diseases of the circulatory system; Z87.19 Personal history of other diseases of the digestive system; Z91.041 Radiographic dye allergy status; Z91.048 Other nonmedicinal substance allergy status
CPT/HCPCS: 99212

== ENCOUNTER → 2022-12-11 | Outpatient (CLI) | payer MEDICARE ==
--- NOTE | 2022-12-11 12:21 | P.PN ---
Subjective DATE: 12/11/2022 FOLLOW UP VISIT. Patient with obstructive sleep apnea hypopnea syndrome and possible narcolepsy return to sleep center for follow-up visit. Information from previous visit have been reviewed. Patient is on treatment with modafinil 200 mg in the morning and visit regimen patient feels significantly better during the day. Patient is using PAP equipment every night for the whole night, getting PAP supplies in time. The patient does not have significant problems with the mask, PAP unit and humidification. [place] sleepiness scale is 18. I checked information from PAP unit. PAP unit pressure 7-14, average 11 cm H2O. Usage is 100% and 87 % for more then 4 hours, average 6.25 hours per night. Leak is slightly increased to 29.5 l/m, its time to replace mask. Apnea Hypopnea Index is 3.2, which is normal. MEDICATIONS:1. Modafinil 200 mg 1 tablet in the morning 2. Atorvastatin 20 mg once a day 3. Flexeril 10 mg once a day 4. Diltiazem 360 mg once a day 5. Enalapril 5 mg once a day 6. Famotidine 40 mg once a day During physical exam: GENERAL: A pleasant patient without any distress. VITAL SIGNS: BP 138/72, HR 85, RR 16 , weight 210.4, temperature 98.2, oxygen saturation at room air 96 % . HEENT: PERRLA, EOMI.low position of soft palate, Mallapati 4 . NECK: Supple. No JVD. LUNGS: Clear to percussion and to auscultation. Good air exchange. No wheezing or rhonchi. HEART: S1, S2 regular. ABDOMEN: Soft and nontender.[] EXTREMITIES: No clubbing or cyanosis. PARTS SALESPERSON: Awake, alert, and oriented x3. No focal deficit. Impressions: 1. Obstructive sleep apnea-hypopnea syndrome. Patient demonstrated great compliance with treatment, benefiting from treatment. 2. Narcolepsy type II. 3. Hypertension. 4. History of WPW syndrome. 5. History of anemia. 6. History of hiatal hernia. Plan: 1. Continue using PAP equipment every night for the whole night. 2. To continue modafinil 200 mg once a day in the morning. 3. PAP unit should stay lower then position of the head. 4. Advised patient to remove all remaining water from humidifier canister daily and make it dry after each usage. Refill canister with fresh distilled water before each usage. 5. Sleep hygiene with regular time in bed for at least 8 hours. 6. Precautions related to driving. No driving if feel any sleepiness. 7. I will maintain prescription for PAP supplies including mask, tube, filters. 8. Follow up visit in 6 months or earlier if patient has any problems. 9. Watching weight. Thank you very much for allowing me to participate in the management of your patient. Greg Boo MD, PhD, FAASM. Diplomat of [employer], Sleep Medicine Board by [employer] Cradle Placer of [facility] [place]
== END ==
LOC: 3 N SLEEP 11:39
PROVIDERS: ATTEND Internal Medicine
DX: G47.33 Obstructive sleep apnea (adult) (pediatric) (principal); G47.419 Narcolepsy without cataplexy; I10 Essential (primary) hypertension; Z79.899 Other long term (current) drug therapy; Z99.89 Dependence on other enabling machines and devices
CPT/HCPCS: 99212

== ENCOUNTER → 2022-12-23 | Outpatient (CLI) | payer MEDICARE ==
[2022-12-23 14:46] LABS: African American GFR (CKD) >90 (>60 ml/min/1.73 sqM); Blood Urea Nitrogen 15 mg/dL (7-17); Non-African American GFR(CKD) >90 (>60 ml/min/1.73 sqM)
--- NOTE | 2022-12-23 16:07 | CT ---
EXAMINATION TYPE: CT abdomen w con CT DLP: 1217.30 mGycm, Automated exposure control for dose reduction was used. DATE OF EXAM: 12/23/2022 3:21 PM COMPARISON: No direct comparisons. CLINICAL INDICATION:Female, 72 years old with history of R10.11 RUQ PAIN R10.13 EPIGASTRIC PAIN; RUQ pain, epigastric pain, hx hiatal hernia. Pt has trouble swallowing as well (wanted this noted). TECHNIQUE: Standard CT of the abdomen following the administration of 100 cc of Isovue 300 IV contr ast material and oral contrast. Coronal and sagittal reformats were performed. Patient was premedicat ed. FINDINGS: LOWER CHEST: Unremarkable ABDOMEN LIVER: Unremarkable GALLBLADDER AND BILE DUCTS: The gallbladder is surgically absent. PANCREAS: Fatty atrophy of the pancreas. SPLEEN: Unremarkable. ADRENAL GLANDS: Unremarkable. KIDNEYS AND URETERS: No evidence of hydronephrosis or renal calculus. The kidneys enhance symmetrical ly. Contrast is demonstrated within both collecting systems on the delayed phase. Bilateral renal sin us cysts. STOMACH AND BOWEL: Moderate to large sized hilar hernia with approximately 50% of the stomach above t he diaphragm. Focal bowel wall thickening or surrounding inflammatory changes. Scattered colonic dive rticula of the visualized descending colon without surrounding inflammatory changes.Enteric contrast reaches the mid small bowel. No evidence of bowel obstruction. PERITONEUM: No evidence of pneumoperitoneum or free fluid. VASCULATURE: Mild atherosclerotic calcifications are present throughout the abdominal aorta and its b ranches. No evidence of aortic aneurysm. MUSCULOSKELETAL: No acute osseous abnormalities. Moderate disc degeneration changes are present throu ghout the thoracolumbar spine. S-shaped scoliotic curvature. LYMPH NODES: No gross evidence for lymphadenopathy. SOFT TISSUE/ABDOMINAL WALL: Unremarkable IMPRESSION: 1. No acute abdominal process. 2. Moderate to large size hiatal hernia.
== END | disposition home or self-care (01) ==
LOC: RADCTMAIN 13:54
PROVIDERS: ATTEND Family Medicine
DX: K44.9 Diaphragmatic hernia without obstruction or gangrene (principal); R14.0 Abdominal distension (gaseous); R63.4 Abnormal weight loss
CPT/HCPCS: 82565; 84520; 74160; 36415; Q9967

== ENCOUNTER → 2023-01-05 | Day surgery (SDC) | payer MEDICARE ==
[2023-01-01 09:20] VITALS: BMI 35.2
[2023-01-05 11:29] VITALS: BP 160/70; PULSE 77; RESP 18; TEMP 97.7
== END ==
LOC: ORWHC2ENDO 11:05
PROVIDERS: ATTEND Internal Medicine Gastroenterology
DX: R13.10 Dysphagia, unspecified (principal); Z53.9 Procedure and treatment not carried out, unspecified reason

== ENCOUNTER → 2023-06-11 | Outpatient (CLI) | payer MEDICARE ==
--- NOTE | 2023-06-11 12:43 | P.PN ---
Subjective DATE: 06/11/2023 FOLLOW UP VISIT. Patient with obstructive sleep apnea hypopnea syndrome and possible narcolepsy return to sleep center for follow-up visit. Information from previous visit have been reviewed. With modafinil 200 mg in the morning patient is able to control her alertness during the day. Patient is using PAP equipment every night for the whole night, getting PAP supplies in time. The patient does not have significant problems with the mask, PAP unit and humidification. [place] sleepiness scale is increased to 19. I checked information from PAP unit. PAP unit pressure 7-14, average 10.4 cm H2O. Usage is 100 % for more then 4 hours, average 7.2 hours per night. Leak is slightly increased to 31.2 l/m. Apnea Hypopnea Index is 3.0, which is normal. MEDICATIONS:1. Modafinil 200 mg once a day in the morning 2. [place] 7.5 mg up to 3 times a day for pain 3. Diltiazem them 360 mg once a day 4. Enalapril 10 mg once a day 5. Famotidine 40 mg once a day 6. Albuterol 7. Iron 65 mg once a day 8. Lansoprazole 30 mg once a day During physical exam: GENERAL: A pleasant patient without any distress. VITAL SIGNS: BP 124/80, HR 86, RR 18 , weight 212.0, temperature 98.0, oxygen saturation at room air 97 % . HEENT: PERRLA, EOMI.low position of soft palate, Mallapati 4 . NECK: Supple. No JVD. LUNGS: Clear to percussion and to auscultation. Good air exchange. No wheezing or rhonchi. HEART: S1, S2 regular. ABDOMEN: Soft and nontender.[] EXTREMITIES: No clubbing or cyanosis. EXERCISE PLANNER: Awake, alert, and oriented x3. No focal deficit. Impressions: 1. Obstructive sleep apnea-hypopnea syndrome. Patient demonstrated great compliance with treatment, benefiting from treatment. 2. Narcolepsy type II. 3. History of WPW syndrome. 4. Hypertension. 5. History of anemia. 6. History of hiatal hernia. 7. Acid reflux. Plan: 1. Continue using PAP equipment every night for the whole night. 2. To change air filter at least 1-2 times per month. 3. PAP unit should stay lower then position of the head. 4. Advised patient to remove all remaining water from humidifier canister daily and make it dry after each usage. Refill canister with fresh distilled water before each usage. 5. Sleep hygiene with regular time in bed for at least 8 hours. 6. Precautions related to driving. No driving if feel any sleepiness. 7. I will maintain prescription for PAP supplies including mask, tube, filters. 8. Watching weight. 9. Follow up visit in 6 months or earlier if patient has any problems. Thank you very much for allowing me to participate in the management of your patient. Greg Boo MD, PhD, FAASM. Diplomat of [employer], Sleep Medicine Board by [employer] Medical Researcher of [facility] [place]
== END ==
LOC: 3 N SLEEP 11:40
PROVIDERS: ATTEND Internal Medicine
DX: G47.33 Obstructive sleep apnea (adult) (pediatric) (principal); G47.419 Narcolepsy without cataplexy; I10 Essential (primary) hypertension; K21.9 Gastro-esophageal reflux disease without esophagitis; Z87.19 Personal history of other diseases of the digestive system; Z86.2 Personal history of diseases of the blood and blood-forming organs and certain disorders involving the immune mechanism; Z86.79 Personal history of other diseases of the circulatory system; Z99.89 Dependence on other enabling machines and devices; Z79.899 Other long term (current) drug therapy; Z91.041 Radiographic dye allergy status; Z91.09 Other allergy status, other than to drugs and biological substances; Z88.8 Allergy status to other drugs, medicaments and biological substances
CPT/HCPCS: 99212

== ENCOUNTER → 2024-01-20 | Outpatient (CLI) | payer MEDICARE ==
[2024-01-20 11:01] VITALS: BP 144/73; PULSE 73; RESP 16; TEMP 98.2
--- NOTE | 2024-01-20 11:25 | P.PROGSL ---
Subjective DATE: 01/20/2024 FOLLOW UP VISIT. Patient with obstructive sleep apnea hypopnea syndrome and narcolepsy return to sleep center for follow-up visit. Information from previous visit have been reviewed. Patient is using PAP equipment every night for the whole night, getting PAP supplies in time. Patient is on treatment with modafinil 200 mg once a day in the morning to prevent excessive daytime sleepiness. She did not take her medication today because she is out of medication. The patient does not have significant problems with the mask, PAP unit and humidification. [place] sleepiness scale is significantly increased to 21. I checked information from PAP unit. PAP unit pressure 7-14, average 11.4 cm H2O. Usage is 100% and 87% for more then 4 hours, average 6.5 hours per night. Leak is 10.4 l/m, which is in acceptable range. Apnea Hypopnea Index is 2.6, which is normal. MEDICATIONS have been reviewed, please see below. During physical exam: GENERAL: A pleasant patient without any distress. VITAL SIGNS: Please see below, weight is 219.2 lbs. HEENT: PERRLA, EOMI.low position of soft palate, Mallapati 4 . NECK: Supple. No JVD. LUNGS: Clear to percussion and to auscultation. Good air exchange. No wheezing or rhonchi. HEART: S1, S2 regular. ABDOMEN: Soft and nontender, slightly obese EXTREMITIES: No clubbing or cyanosis. GRAIN ELEVATOR SUPERINTENDENT: Awake, alert, and oriented x3. No focal deficit. Impressions: 1. Obstructive sleep apnea-hypopnea syndrome. Patient demonstrated great compliance with treatment, benefiting from treatment. 2. Obesity, BMI 38.1, patient increased weight on 7 pounds comparing with previous visit. 3. Narcolepsy type II. 4. Hypertension. 5. History of WPW syndrome. 6. History of anemia. 7. Acid reflux. 8. History of hiatal hernia. 9. 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 Plan: 1. Continue using PAP equipment every night for the whole night. 2. Sleep hygiene with regular time in bed for at least 7.5-8 hours 3. PAP unit should stay lower then position of the head. 4. Advised patient to remove all remaining water from humidifier canister daily and make it dry after each usage. Refill canister with fresh distilled water before each usage. 5. Watching and losing weight. 6. Precautions related to driving. No driving if feel any sleepiness. 7. I will maintain prescription for PAP supplies including mask, tube, filters. 8. Follow up visit in 6 months or earlier if patient has any problems. 9. Prescription for modafinil 200 mg once a day in the morning. Thank you very much for allowing me to participate in the management of your patient. Greg Boo MD, PhD, FAASM. Diplomat of [employer], Sleep Medicine Board by [employer] Marine Electrician Apprentice of [facility] [place] Objective - Vital Signs Vital Signs: Vital Signs Temp 98.2 F 01/20/24 10:57 Pulse 73 01/20/24 10:57 Resp 16 01/20/24 10:57 BP 144/73 01/20/24 10:57 Pulse Ox 99 01/20/24 10:57 FiO2 Intake & Output 01/19/24 01/20/24 01/20/24 18:59 06:59 18:59 Weight 99.393 kg Home Medications: Home Medications Medication Instructions Recorded Confirmed Type Ascorbic Acid [Vitamin C] 500 mg PO DAILY 02/24/20 01/01/23 History Atorvastatin [Lipitor] 20 mg PO DAILY 02/24/20 01/01/23 History Celecoxib [CeleBREX] 200 mg PO DAILY 02/24/20 01/05/23 History DULoxetine HCL [Cymbalta] 30 mg PO BID 02/24/20 01/01/23 History HYDROcodone/APAP 7.5-325MG [[place] 1 tab PO TID PRN 02/24/20 01/05/23 History 7.5-325] dilTIAZem HCL [Cardizem CD] 360 mg PO QAM 02/24/20 01/01/23 History flaxseed oiL [Flaxseed Oil] 3,000 mg PO DAILY 02/24/20 01/01/23 History guaiFENesin 400 mg PO HS PRN 02/24/20 01/01/23 History Cholecalciferol (Vitamin D3) 125 mcg PO DAILY 10/25/20 01/01/23 History [Vitamin D3 (5000 Iu)] Enalapril Maleate [Vasotec] 10 mg PO HS 10/25/20 01/01/23 History Lecithin, Soy [Lecithin] 1,200 mg PO DAILY 10/25/20 01/01/23 History Magnesium 500 mg PO DAILY 10/25/20 01/01/23 History Tolterodine Tartrate [Detrol] 2 mg PO BID 10/25/20 01/01/23 History Calcium Carbonate/Vitamin D3 1 each PO DAILY 01/01/23 01/01/23 History [Calcium 600 mg-D3 20 mcg (800 unit)] Cyclobenzaprine [Flexeril] 10 mg PO BID PRN 01/01/23 01/01/23 History Famotidine [Pepcid] 40 mg PO DAILY 01/01/23 01/01/23 History Ferrous Sulfate [Feosol] 325 mg PO DAILY 01/01/23 01/01/23 History Lansoprazole 30 mg PO DAILY 01/01/23 01/01/23 History Nf-Hemp Cbd Oil 12 drops PO DIRECTED PRN 01/01/23 01/05/23 History Psyllium Husk 100% [Metamucil 6 gm PO DAILY 01/01/23 01/01/23 History Packet] Valerian Root [Valerian] 450 mg PO HS PRN 01/01/23 01/01/23 History Vitamin A Acetate [Vitamin A] 3,000 mcg SL DAILY 01/01/23 01/01/23 History modafiniL [Provigil] 200 mg PO DAILY 01/01/23 01/01/23 History
== END ==
LOC: 3 N SLEEP 10:34
PROVIDERS: ATTEND Internal Medicine
CPT/HCPCS: 99212

== ENCOUNTER → 2024-02-02 | Outpatient (CLI) | payer MEDICARE ==
[2024-02-02 13:48] VITALS: BP 155/71; PULSE 76; RESP 17; TEMP 98.5
--- NOTE | 2024-02-02 17:49 | P.HPOB ---
History of Present Illness H&P Date: 02/02/24 Chief Complaint: The patient is here for her routine gynecologic exam and ma mmogram. This is a 73-year-old G2, P2 with an LMP of 1980. The patient is status post vaginal hysterectomy and later BSO for benign reasons. She previously saw Dr. Mckenna for her gynecologic care. She was last seen by him about 2 years ago. She has a history of lichen sclerosus of the vulva and does use clobetasol ointment as needed. She states she does have a history of a cystocele and had a cystocele repair but does have issues with urinary leakage. She is otherwise without gynecologic complaints. Review of Systems The patient has gained 15 pounds over the last year. She states she has had difficulty with activities following shoulder problems and this has led to weight gain. She denies respiratory, cardiac, or G.I. problems. Past Medical History Past Medical History: Asthma, GERD/Reflux, Hyperlipidemia, Hypertension, Osteoarthritis (OA), Skin Disorder, Sleep Apnea/CPAP/BIPAP Additional Past Medical History / Comment(s): states very weak bladder, IBS, moderate hiatal hernia with esophageal dysplasia, narcolepsy, uses CPAP, hx of colon polyps, and fundic polyps, hx of adhesions and bowel obstruction, deviated septum. WPW syndrome with tachycardia. Chronic back problems. Mnire's disease. Osteopenia. 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 History of endometriosis and lichen sclerosus of the vulva(biopsy confirmed per pt). History of Any Multi-Drug Resistant Organisms: None Reported Past Surgical History: Back Surgery, Bladder Surgery, Breast Surgery, Cholecystectomy, Heart Catheterization, Hysterectomy, Joint Replacement, Orthopedic Surgery Additional Past Surgical History / Comment(s): Vaginal hysterectomy 1980, BSO 108. hemorrhoidectomy, bladder suspension(not sling), rectocele, radha knee replacement, bilat. shoulder replaced, benign left breast tumor removed, Total right hip replacement. Surgery for bowel obstruction/adhesions. Colonoscopy 2022(next after 3yr) Past Anesthesia/Blood Transfusion Reactions: Previous Problems w/ Anesthesia Additional Past Anesthesia/Blood Transfusion Reaction / Comment(s): states "years ago had a hard time waking" hx of narcolepsy Past Psychological History: Depression Additional Psychological History / Comment(s): . Smoking Status: Never smoker Past Alcohol Use History: None Reported Past Drug Use History: None Reported - Past Family History Sister(s) Family Medical History: Cancer Additional Family Medical History / Comment(s): Bipolar. Brother(s) Family Medical History: Cancer Additional Family Medical History / Comment(s): Leukemia. . Mother Additional Family Medical History / Comment(s): Bipolar disorder. Father Family Medical History: Diabetes Mellitus Additional Family Medical History / Comment(s): Alcoholic. The patient's father's cousin had breast cancer. Medications and Allergies Home Medications Medication Instructions Recorded Confirmed Type Ascorbic Acid [Vitamin C] 500 mg PO DAILY 02/24/20 02/02/24 History Atorvastatin [Lipitor] 20 mg PO DAILY 02/24/20 02/02/24 History Celecoxib [CeleBREX] 200 mg PO DAILY 02/24/20 02/02/24 History DULoxetine HCL [Cymbalta] 30 mg PO BID 02/24/20 02/02/24 History HYDROcodone/APAP 7.5-325MG [[place] 1 tab PO TID PRN 02/24/20 02/02/24 History 7.5-325] dilTIAZem HCL [Cardizem CD] 360 mg PO QAM 02/24/20 02/02/24 History flaxseed oiL [Flaxseed Oil] 3,000 mg PO DAILY 02/24/20 02/02/24 History Cholecalciferol (Vitamin D3) 125 mcg PO DAILY 10/25/20 02/02/24 History [Vitamin D3 (5000 Iu)] Enalapril Maleate [Vasotec] 10 mg PO HS 10/25/20 02/02/24 History Lecithin, Soy [Lecithin] 1,200 mg PO DAILY 10/25/20 02/02/24 History Magnesium 500 mg PO DAILY 10/25/20 02/02/24 History Tolterodine Tartrate [Detrol] 2 mg PO BID 10/25/20 02/02/24 History Calcium Carbonate/Vitamin D3 1 each PO DAILY 01/01/23 02/02/24 History [Calcium 600 mg-D3 20 mcg (800 unit)] Cyclobenzaprine [Flexeril] 10 mg PO BID PRN 01/01/23 02/02/24 History Famotidine [Pepcid] 40 mg PO DAILY 01/01/23 02/02/24 History Ferrous Sulfate [Feosol] 325 mg PO DAILY 01/01/23 02/02/24 History Lansoprazole 30 mg PO DAILY 01/01/23 02/02/24 History Nf-Hemp Cbd Oil 12 drops PO DIRECTED PRN 01/01/23 02/02/24 History Vitamin A Acetate [Vitamin A] 3,000 mcg SL DAILY 01/01/23 02/02/24 History modafiniL [Provigil] 200 mg PO DAILY 01/01/23 02/02/24 History Allergies Allergy/AdvReac Type Severity Reaction Status Date / Time Iodinated Contrast Media Allergy SOB, HIVES Verified 01/01/23 08:58 nickel Allergy Rash/Hives, Verified 01/01/23 08:58 Blisters povidone-iodine Allergy rash, Verified 01/01/23 08:58 [From Betadine] redness , irritation, goodwin soap [From Betadine] Allergy Unknown Verified 01/01/23 08:58 Exam Vital Signs Temp Pulse Resp BP Pulse Ox 02/02/24 13:42 98.5 F 76 17 155/71 97 Height 5 feet 4 inches, weight 224 pounds, BMI 38.4. This is a well-developed well-nourished white female who is alert and oriented times 3 in no acute distress. Patient ambulates with a walker. HEENT: Within normal limits. NECK: Supple without mass or thyromegaly. CHEST AND LUNGS: Clear to auscultation. HEART: Regular rate and rhythm. BREASTS: Are without mass or discharge. AXILLARY EXAM: Negative for adenopathy. BACK: Negative for CVA tenderness. ABDOMEN: Soft, nontender, without palpable masses. PELVIC EXAM: The external genitalia reveals minimal pallor between the labia majora and labia minora near the clitoris. The external genitalia reveals mild to moderate atrophy. The external genitalia is otherwise unremarkable. Vagina appears normal with mild to moderate atrophy. There is no evidence of prolapse. Bimanual examination is negative for mass or tenderness. RECTAL EXAM: Rectovaginal exam is negative for mass or tenderness and is negative for occult blood. EXTREMITIES: Nontender. IMPRESSION: 1. 73-year-old menopausal female status post vaginal hysterectomy and later BSO for benign reasons, with mild lichen sclerosus of the vulva which was previously diagnosed with a biopsy for the patient. 2. Lichen sclerosus of the vulva has been controlled with clobetasol ointment, Vagifem tablets and Premarin vaginal cream. 3. History of osteopenia. 4. Multiple medical problems. PLAN: 1. Pap smears have been discontinued. 2. Self breast awareness was discussed with the patient. We have also discussed symptoms associated with inflammatory breast cancer. 3. Screening mammogram was done today. 4. Osteoporosis prevention was discussed. I have stressed the importance of adequate calcium, vitamin D and regular exercise. Recommended amounts of calcium and vitamin D were also discussed. Bone density testing will be repeated in about 1 year. 5. We will continue her regimen that she has used to control her lichen sclerosis symptoms. This includes clobetasol ointment twice daily as needed, Vagifem into the vagina 2 times weekly, and Premarin vaginal cream weekly to the vagina and external genitalia. Electronic prescription for these will be sent to [facility]. 6. She was advised to return in one year for her annual well woman exam and as needed.
== END ==
LOC: WWCWWP 13:19
PROVIDERS: ATTEND Obstetrics & Gynecology
DX: Z12.31 Encounter for screening mammogram for malignant neoplasm of breast (principal); N90.4 Leukoplakia of vulva; M85.80 Other specified disorders of bone density and structure, unspecified site; L90.0 Lichen sclerosus et atrophicus; Z90.722 Acquired absence of ovaries, bilateral; Z90.710 Acquired absence of both cervix and uterus; Z80.3 Family history of malignant neoplasm of breast; Z91.041 Radiographic dye allergy status; Z91.09 Other allergy status, other than to drugs and biological substances; Z88.8 Allergy status to other drugs, medicaments and biological substances

== ENCOUNTER 2024-02-17 08:28 | Day surgery (SDC) | payer MEDICARE ==
[2024-02-17 09:12] LABS: Glucose,Whole Blood 110 mg/dL (70-110)
[2024-02-17] MEDS: IV FLUID CONTINUATION 1,000 ML IV ONE (09:13)
[2024-02-17 09:15] VITALS: TEMP 97.5
[2024-02-17] MEDS: LACTATED RINGERS 1,000 ML BAG IV STA (09:20)
[2024-02-17] MEDS ORDERED: PROPOFOL 10 MG/ML 20 ML VIAL IV ONE (10:04)
--- NOTE | 2024-02-17 10:15 | P.PCN ---
Date of Procedure: 02/17/24 Procedure(s) Performed: BRIEF HISTORY: Patient is a 73-year-old, pleasant, white female scheduled for an upper endoscopy as a part evaluation of GERD and intermittent dysphagia to solids.. She also has longstanding history of gastroesophageal reflux disease and presently on Prevacid 30 mg twice daily. PROCEDURE PERFORMED: Esophagogastroduodenoscopy with biopsy and dilation. PREOPERATIVE DIAGNOSIS: Intermittent dysphagia to solids alongside history of GERD. IV sedation per anesthesia. PROCEDURE: After informed consent was obtained, the patient was brought into the endoscopy unit. IV sedation was administered by Anesthesia under continuous monitoring. Initially the Olympus GIF-140 video endoscope was inserted into the mouth. Esophagus intubated without any difficulty. It was gradually advanced into the stomach and duodenum and carefully examined. The bulb and the second part of the duodenum appeared normal. The scope at this time was withdrawn to the stomach, adequately insufflated with air, and upon careful examination, mucosa of the antrum, body, cardia and the fundus appeared normal. Moderate to large size hiatal hernia noted. The scope was then withdrawn into the esophagus. The GE junction was located at 34 cm from the incisors. There was a widely patent distal esophageal Schatzki's ring identified which was dilated using 20 mm TTS balloon for 60 seconds. The rest of the esophagus appeared normal. Biopsies were done from the distal esophagus. There were no erosions or ulcerations seen and the patient tolerated the procedure well. IMPRESSION: 1. Distal esophageal lycopene and Schatzki s/p balloon dilation using 20 mm TTS balloon. 2. Moderate to large hiatal hernia. RECOMMENDATIONS: The findings of this examination were discussed with the patient as well as her family. She was advised to follow-up with the biopsy results.. Remain on clear liquids for 2 hours. Follow-up in the office in 3 months. Continue with lansoprazole 30 mg twice daily and Pepcid at bedtime.
[2024-02-17 10:44] VITALS: BP 126/59; PULSE 63; RESP 16
== END 2024-02-17 11:09 | disposition home or self-care (01) ==
LOC: ORWHC2ENDO 08:28
PROVIDERS: ATTEND Internal Medicine Gastroenterology
CPT/HCPCS: 43239; 43249; 88305

== ENCOUNTER 2024-02-23 09:51 | Emergency (ER) | payer MEDICARE ==
[2024-02-23 09:55] VITALS: RESP 20
[2024-02-23] MEDS: LIDOCAINE 1% INJ 10MG/ML (20 ML MDV) SQ ONE (10:33)
[2024-02-23] MEDS: PROPARACAINE 0.5% OPHTH DROPS 15 ML BTL RIGHT EYE STA (10:33)
[2024-02-23] MEDS: FLUORESCEIN STRIPS 1 MG STRIP RIGHT EYE ONE (10:34)
[2024-02-23] MEDS: DIPH,PERTUS(ACELL)TETVAC-LF 0.5 ML VIAL IM ONE (10:34)
--- NOTE | 2024-02-23 10:47 | CT ---
EXAMINATION TYPE: CT brain cspine wo con, CT facial bones wo con CT DLP: 1154.8 mGycm, Automated exposure control for dose reduction was used. DATE OF EXAM: 02/23/2024 10:33 AM COMPARISON: None. CLINICAL INDICATION:Female, 73 years old with history of Fall; Fall TECHNIQUE: Brain: Multiple axial CT images of the brain were obtained without IV contrast. Cspine: Axial CT images from the skull base to the inferior aspect of T2 we obtained without intraven ous contrast. Coronal and sagittal reformatted images were also reviewed. Facial bones; axial CT images of the facial bones were obtained without contrast and soft tissue and bone windows. Coronal and sagittal reformatted images were also reviewed. FINDINGS: Brain: Extra-axial spaces: No abnormal extra-axial fluid collections. Ventricular system: Within normal limits Cerebral parenchyma: No acute intraparenchymal hemorrhage or mass effect. The roberts-white junction is well differentiated. Scattered hypoattenuating areas are seen within the periventricular white matte r. Cerebellum: Unremarkable. Mass effect: No evidence of midline shift. Intracranial vasculature: Atherosclerotic calcifications of the intracranial vessels. Soft tissues: Normal. Calvarium/osseous structures: No depressed skull fracture. Paranasal sinuses and mastoid air cells: Clear. Visualized orbits: Orbital contents are intact. Cervical spine: Fracture: None. Osseous structures: Multilevel degenerative disc disease changes with endplate spurring and disc oste ophyte complex's. Degenerative changes of the C1-C2 articulation. Vertebral alignment: Likely degenerative grade 1 anterolisthesis of C2 on C3, C3 on C4, C4 on C5, and C7 on T1. Mild retrolisthesis of C5 on C6. Spinal canal/Neural Foramina: Disc osteophyte complexes at C3-C4, C4-C5, C5-C6, C6-C7 with at least m ild spinal canal stenosis. Facet joint uncovertebral joint arthropathy scattered throughout the cervi nadia spine with varying degrees of neural foraminal stenosis. Neck soft tissues: Prevertebral soft tissues are within normal limits. Other: The airway is patent. The lung apices are clear. Facial Bones: There is no evidence of fracture, subluxation, dislocation, or significant soft tissue swelling. The orbital contents are unremarkable. The temporal-mandibular joints demonstrate degenerative changes. T he visualized portion of the paranasal sinuses appear clear. 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 IMPRESSION: 1. No acute intracranial process. 2. Nonspecific white matter changes, likely secondary to chronic small vessel ischemic disease. 3. No acute facial bone fracture. 4. No evidence of cervical spine fracture. 5. Moderate multilevel degenerative disc disease. 6. Likely degenerative grade 1 anterolisthesis of C2 on C3, C3 on C4, C4 on C5, and C7 on T1. Mild r etrolisthesis of C5 on C6. [facility], , 02/23/2024 10:45 AM
[2024-02-23] MEDS: AMOXICILLIN 500 MG CAP PO STA (11:08)
--- NOTE | 2024-02-23 11:11 | XR ---
EXAMINATION TYPE: XR knee complete RT DATE OF EXAM: 02/23/2024 10:33 AM CLINICAL INDICATION: Female, 73 years old with history of Fall; COMPARISON: None. TECHNIQUE: XR knee complete RT; examined in Frontal, lateral and oblique projections. FINDINGS: Status post total knee arthroplasty changes with hardware in appropriate alignment and in tact. No evidence of fracture. IMPRESSION: Status post total knee arthroplasty changes with hardware intact and appropriate alignment. No fractu res identified. [facility], , 02/23/2024 11:09 AM
--- NOTE | 2024-02-23 11:37 | ED ---
Fall HPI - General Chief Complaint: Fall Stated Complaint: Fall facial injury Time Seen by Provider: 02/23/24 09:58 Source: patient, RN notes reviewed Mode of arrival: wheelchair Limitations: no limitations - History of Present Illness Initial Comments: This is a 73-year-old female who presents to the emergency department for fall. States that she was walking up the steps to her house and tripped, causing her to land face first on the ground. Denies any loss of consciousness. Not taking any blood thinners. She does have an open wound to her right eyebrow. Tetanus vaccine is not up-to-date. Also reports pain to her right knee. MD Complaint: fall - Related Data Home Medications Medication Instructions Recorded Confirmed Ascorbic Acid [Vitamin C] 500 mg PO DAILY 02/24/20 02/23/24 Atorvastatin [Lipitor] 20 mg PO HS 02/24/20 02/23/24 Celecoxib [CeleBREX] 200 mg PO DAILY 02/24/20 02/23/24 DULoxetine HCL [Cymbalta] 30 mg PO BID 02/24/20 02/23/24 HYDROcodone/APAP 7.5-325MG [[place] 1 tab PO TID PRN 02/24/20 02/23/24 7.5-325] dilTIAZem HCL [Cardizem CD] 360 mg PO DAILY 02/24/20 02/23/24 flaxseed oiL [Flaxseed Oil] 3,000 mg PO DAILY 02/24/20 02/23/24 Cholecalciferol (Vitamin D3) 125 mcg PO DAILY 10/25/20 02/23/24 [Vitamin D3 (5000 Iu)] Enalapril Maleate [Vasotec] 10 mg PO HS 10/25/20 02/23/24 Lecithin, Soy [Lecithin] 1,200 mg PO DAILY 10/25/20 02/23/24 Magnesium 500 mg PO DAILY 10/25/20 02/23/24 Tolterodine Tartrate [Detrol] 2 mg PO BID 10/25/20 02/23/24 Calcium Carbonate/Vitamin D3 1 tab PO DAILY 01/01/23 02/23/24 [Calcium 600 mg-D3 20 mcg (800 unit)] Cyclobenzaprine [Flexeril] 10 mg PO BID PRN 01/01/23 02/23/24 Famotidine [Pepcid] 40 mg PO HS 01/01/23 02/23/24 Ferrous Sulfate [Feosol] 325 mg PO DAILY 01/01/23 02/23/24 Lansoprazole 30 mg PO DAILY 01/01/23 02/23/24 Nf-Hemp Cbd Oil 12 drops PO DIRECTED PRN 01/01/23 02/23/24 Vitamin A Acetate [Vitamin A] 3,000 mcg SL DAILY 01/01/23 02/23/24 modafiniL [Provigil] 200 mg PO DAILY 01/01/23 02/23/24 Albuterol Inhaler [Ventolin Hfa 1 puff INHALATION RT-BID 02/16/24 02/23/24 Inhaler] Aspirin 81 mg PO DAILY 02/16/24 02/23/24 Clobetasol Propionate [Temovate] 1 applic VAGINAL WEEKLY 02/23/24 02/23/24 estradioL 10 mcg VAGINAL DIRECTED 02/23/24 02/23/24 Allergies Allergy/AdvReac Type Severity Reaction Status Date / Time Iodinated Contrast Media Allergy SOB, HIVES Verified 02/23/24 10:50 nickel Allergy Rash/Hives, Verified 02/23/24 10:50 Blisters povidone-iodine Allergy rash, Verified 02/23/24 10:50 [From Betadine] redness , irritation, goodwin soap [From Betadine] Allergy Unknown Verified 02/23/24 10:50 Review of Systems ROS Statement: Those systems with pertinent positive or pertinent negative responses have been documented in the HPI. ROS Other: All systems not noted in ROS Statement are negative. Past Medical History Past Medical History: GERD/Reflux, Hyperlipidemia, Hypertension, Osteoarthritis (OA), Skin Disorder, Sleep Apnea/CPAP/BIPAP Additional Past Medical History / Comment(s): states very weak bladder wears brief, IBS, moderate hiatal hernia with esophageal dysplasia, narcolepsy, uses CPAP, hx of colon polyps, and fundic polyps, hx of adhesions and bowel obstruction, deviated septum. WPW syndrome with tachycardia. Chronic back problems. Mnire's disease. Osteopenia. 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 History of endometriosis and lichen sclerosus of the vulva(biopsy confirmed per pt). lining of lungs inflamed. History of Any Multi-Drug Resistant Organisms: None Reported Past Surgical History: Back Surgery, Bladder Surgery, Breast Surgery, Cholecystectomy, Heart Catheterization, Hysterectomy, Joint Replacement, Orthopedic Surgery Additional Past Surgical History / Comment(s): Vaginal hysterectomy 1980, BSO 1085. hemorrhoidectomy, bladder suspension(not sling), rectocele, radha knee replacement, bilat. shoulder replaced, benign left breast tumor removed, Total right hip replacement. Surgery for bowel obstruction/adhesions. Colonoscopy 2022(next after 3yr) reversal rt shoulder Past Anesthesia/Blood Transfusion Reactions: Previous Problems w/ Anesthesia Additional Past Anesthesia/Blood Transfusion Reaction / Comment(s): states "years ago had a hard time waking" hx of narcolepsy Past Psychological History: Depression Smoking Status: Never smoker Past Alcohol Use History: None Reported Past Drug Use History: None Reported - Past Family History Sister(s) Family Medical History: Cancer Additional Family Medical History / Comment(s): Bipolar. breast cancer Brother(s) Family Medical History: Cancer Additional Family Medical History / Comment(s): Leukemia. . Mother Additional Family Medical History / Comment(s): Bipolar disorder. Father Family Medical History: Diabetes Mellitus Additional Family Medical History / Comment(s): Alcoholic. The patient's father's cousin had breast cancer. General Exam Limitations: no limitations General appearance: alert, in no apparent distress Head exam: Present: other (Laceration to the right eyebrow with active bleeding) Eye exam: Present: normal appearance, PERRL, EOMI. Absent: scleral icterus, conjunctival injection, periorbital swelling Respiratory exam: Present: normal lung sounds bilaterally. Absent: respiratory distress, wheezes, rales, rhonchi, stridor Cardiovascular Exam: Present: regular rate, normal rhythm, normal heart sounds. Absent: systolic murmur, diastolic murmur, rubs, gallop, clicks Extremities exam: Present: other (Ecchymosis and tenderness over the right knee. Full range of motion. 2+ DP and PT pulses) Neurological exam: Present: alert, oriented X3, CN II-XII intact Psychiatric exam: Present: normal affect, normal mood Course Vital Signs 02/23/24 02/23/24 09:52 12:03 Temperature 97.7 F 98 F Pulse Rate 66 68 Respiratory 20 20 Rate Blood Pressure 132/57 130/68 O2 Sat by Pulse 98 98 Oximetry Procedures - Laceration Laceration #1 Consent Obtained: verbal consent Indication: laceration Site: face Size (cm): 4 Description: stellate Depth: simple, single layer Anesthetic Used: lidocaine 1% Anesthesia Technique: local infiltration Amount (mls): 4 Pre-repair: wound explored, irrigated extensively Type of Sutures: nylon Size of Sutures: 6-0 Number of Sutures: 7 Technique: simple, interrupted Medical Decision Making - Medical Decision Making This is a 73-year-old female who presents to the emergency department for a fall. Was pt. sent in by a medical professional or institution? @ -No Did you speak to anyone other than the patient for history? @ -No Did you review nursing and triage notes? @ -Yes, and I agree, it is accurate with regards to the patient's symptoms. Were old charts reviewed? @ -No Differential Diagnosis? @ -Differential Diagnosis Head Injury: Contusion, hematoma, intracranial hemorrhage, skull fracture, whiplash, concussion, this is not meant to be an all-inclusive list. EKG interpreted by me (3pts min.)? @ -Not obtained X-rays interpreted by me (1pt min.)? @ -X-ray of the right knee obtained. My interpretation identifies no acute fractures. CT interpreted by me (1pt min.)? @ -Computed tomography scan of the brain and c-spine obtained. My interpretation identifies no evidence of an acute intracranial hemorrhage, skull fracture, or cervical spine fracture. CT scan of the facial bones obtained. My interpretation identifies no facial fractures. U/S interpreted by me (1pt. min.)? @ -Not obtained What testing was considered but not performed? (CT, X-rays, U/S, labs)? Why? @ -None What meds were considered but not given? Why? @ -None Did you discuss the management of the patient with other professionals? @ -No Did you reconcile home meds? @ -No Was smoking cessation discussed for >3mins.? @ -No Was critical care preformed (if so, how long)? @ -No Were there social determinants of health that impacted care today? How? (Homelessness, low income, unemployed, alcoholism, drug addiction, transportation, low edu. Level, literacy, decrease access to med. care, long-term, rehab)? @ -No Was there de-escalation of care discussed even if they declined? (Discuss DNR or withdrawal of care, Hospice)? @ -No What co-morbidities impacted this encounter? (DM, HTN, Smoking, COPD, CAD, Cancer, CVA, Hep., AIDS, mental health diagnosis, sleep apnea, morbid obesity)? @ -Osteoarthritis Was patient admitted / discharged? @ -Discharged. CT scan of the brain and C-spine and CT scan of the facial bones reveals no evidence of an acute intracranial hemorrhage, facial fracture, or cervical spine fracture. X-ray of the right knee also reveals no acute process. Tetanus vaccine was updated. Laceration was cleansed and repaired with sutures. She declined the need for any pain medication in the emergency department. She is advised to return in 5 to 7 days for suture removal. Patient discharged home in stable condition. Case discussed with ED attending Dr. Marinelli. Return precautions reviewed in depth, the patient is instructed to return to the emergency department with any new, worsening, or concerning symptoms. Patient verbalized understanding. Undiagnosed new problem with uncertain prognosis? @ -None Drug Therapy requiring intensive monitoring for toxicity (Heparin, Nitro, Insulin, Cardizem)? @ -None Were any procedures done? @ -Laceration repair with sutures Diagnosis/symptom? @ -Fall, head injury, laceration, right knee injury Acute, or Chronic, or Acute on Chronic? @ -Acute Uncomplicated (without systemic symptoms) or Complicated (systemic symptoms)? @ -Uncomplicated Side effects of treatment? @ -None Exacerbation, Progression, or Severe Exacerbation] @ -Not applicable Poses a threat to life or bodily function? @ -No - Radiology Data Radiology results: report reviewed, image reviewed Disposition Clinical Impression: Fall, Head injury, Laceration, Right knee injury Disposition: HOME SELF-CARE Instructions (If sedation given, give patient instructions): Care For Your Stitches (ED), Fall Prevention for Older Adults (ED) Additional Instructions: Return to the emergency department with any new, worsening, or concerning symptoms and in 5-7 days for removal of the stitches. Follow up with your primary care provider in 1-2 days. Is patient prescribed a controlled substance at d/c from ED?: No Referrals: Adelfo Cochran MD [Primary Care Provider] - 1-2 days Time of Disposition: 11:37
[2024-02-23 12:05] VITALS: BP 130/68; PULSE 68; TEMP 98
== END 2024-02-23 12:34 | disposition home or self-care (01) ==
LOC: EC 09:51
CPT/HCPCS: 12013; 70450; 70486; 72125; 90471; 90715; 99284

== ENCOUNTER → 2024-06-01 | Outpatient (CLI) | payer MEDICARE ==
--- NOTE | 2024-06-02 07:38 | MR ---
EXAMINATION TYPE: MR cervical spine wo/w con DATE OF EXAM: 06/01/2024 2:22 PM COMPARISON: CT 02/23/2024 CLINICAL INDICATION: Female, 73 years old with history of G43.909 MIGRAINE, UNSP, NOT INTRACTABLE,, H eadaches, right arm pain., TECHNIQUE: Multiplanar, multisequence images of the cervical spine were obtained before and after adm inistration of 10 mL intravenous Gadobutrol gadolinium contrast. IV Contrast: 10 cc Gadobutrol (None if empty) FINDINGS: No craniocervical junction abnormality, predental space widening, or prevertebral soft tissue swellin g. Some degenerative changes present at the C1 dens articulation. There is moderate to severe disc/endplate degenerative change particularly from C5 through T1 levels with narrowed and desiccated discs and disc osteophyte complex formation. Ligamentum flavum thickening present at C5-C6 and C6-C7. There is cerebral moderate to severe multilevel facet and uncovertebral joint arthropathy especially mid to lower cervical spine. Degenerative grade 1 anterolisthesis C3-C4 and C4-C5. Degenerative grade 1 retrolisthesis C5-C6. Dege nerative grade 1 anterolisthesis C7-T1. Partially visualized moderate degenerative disc disease in the visualized upper thoracic spine. Disc osteophyte complex formation and scattered the ligamentum flavum thickening impresses onto the t hecal sac at multiple levels. At C2-C3, mild facet arthropathy without significant canal or foraminal stenosis. At C3-C4, disc osteophyte complex contribute to mild narrowing of the spinal canal slightly flattenin g the ventral cord without cord compression. AP canal dimension of 8 mm. No significant neuroforamina l stenosis. At C4-C5, advanced hypertrophic facet arthropathy particularly on the left lung with uncovertebral martin int arthropathy. Degenerative grade 1 anterolisthesis. Disc osteophyte complex impressing on the vent ral thecal sac and abutting the ventral cord without significant spinal canal stenosis. Changes resul t in moderate left neuroforaminal stenosis. At C5-C6, there is moderate facet and uncovertebral joint arthropathy with disc osteophyte complex, l igamentum flavum thickening, and grade 1 retrolisthesis. Overall moderate narrowing of the spinal can al with abutment of both the dorsal and ventral cord and slight ventral cord flattening without cord compression. AP canal dimension narrowed to 7 mm. Moderate bilateral neuroforaminal stenosis. At C6-C7, disc osteophyte complex with ligamentum flavum thickening. Moderate facet and uncovertebral joint arthropathy, right greater than left. Changes result in moderate right and mild left neurofora fmei stenosis. Mild overall narrowing of the spinal canal. At C7-T1, advanced hypertrophic facet and uncovertebral joint arthropathy. Moderate to severe left an d mild right neuroforaminal stenosis. Degenerative grade 1 anterolisthesis. No significant spinal can al stenosis. Some minimal patchy artifact projects over the cord without discrete cord signal abnormality when cor relating with axial and sagittal STIR sequences. No abnormal enhancement within the spinal canal. IMPRESSION: 1. Moderate to severe spondylotic change at mid to lower cervical spine. Degenerative grade 1 spondyl olisthesis C3 through C6 levels as well as at C7-T1. 2. Overall moderate spinal canal stenosis at C5-C6 with abutment and flattening of the ventral cord; mild spinal canal narrowing at C3-C4 and C6-C7. No cord compression. 3. Variable neuroforaminal stenoses as outlined above from hypertrophic facet and uncovertebral joint arthropathy. Narrowing is moderate to severe on the left at C7-T1. [facility], , 06/02/2024 7:36 AM
== END | disposition home or self-care (01) ==
LOC: RADMRIMAIN 13:21
PROVIDERS: ATTEND Family Medicine
DX: M48.02 Spinal stenosis, cervical region (principal); M50.33 Other cervical disc degeneration, cervicothoracic region; M43.13 Spondylolisthesis, cervicothoracic region; G43.909 Migraine, unspecified, not intractable, without status migrainosus; G62.9 Polyneuropathy, unspecified; R93.7 Abnormal findings on diagnostic imaging of other parts of musculoskeletal system
CPT/HCPCS: 72156; A9585

== ENCOUNTER → 2024-08-25 | Outpatient (CLI) | payer MEDICARE ==
[2024-08-25 10:57] VITALS: BP 137/75; PULSE 78; RESP 16; TEMP 97.8
--- NOTE | 2024-08-25 11:06 | P.PROGSL ---
Subjective DATE: 08/25/2024 FOLLOW UP VISIT. Patient with obstructive sleep apnea hypopnea syndrome and narcolepsy return to sleep center for follow-up visit. Information from previous visit have been reviewed. Patient is using PAP equipment every night for the whole night, getting PAP supplies in time. The patient does not have significant problems with the mask, PAP unit and humidification. Byron sleepiness scale is 23, and she able to control her alertness during the day with modafinil. No side effects of medication. I checked information from PAP unit. PAP unit pressure 7-14, average 10.8 cm H2O. Usage is 100% for more then 4 hours, average 7.2 hours per night. Leak is 10 l/m, which is in acceptable range. Apnea Hypopnea Index is 3.0, which is normal. MEDICATIONS: Modafinil 200 mg once a day, famotidine 40 mg once a day, diltiazem 360 mg once a day, atorvastatin 20 mg once a day, enalapril 10 mg once a day, hydrocodone, Antivert 25 mg once a day. During physical exam: GENERAL: A pleasant patient without any distress. VITAL SIGNS: Please see below, weight is 227 lbs. HEENT: PERRLA, EOMI.low position of soft palate, Mallapati 4 . NECK: Supple. No JVD. LUNGS: Clear to percussion and to auscultation. Good air exchange. No wheezing or rhonchi. HEART: S1, S2 regular. ABDOMEN: Soft and nontender.[] EXTREMITIES: No clubbing or cyanosis. 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 No focal deficit. Impressions: 1. Obstructive sleep apnea-hypopnea syndrome. Patient demonstrated great compliance with treatment, benefiting from treatment. 2. Narcolepsy type II. 3. Obesity, BMI 40.2, patient increased weight on 8 pounds comparing with the previous visit. 4. History of WPW syndrome. 5. History of anemia. 6. Acid reflux. 7. History of hiatal hernia. 8. Status post right shoulder replacement. 9. Recently diagnosed with benign lesions on the breast. Plan: 1. Continue using PAP equipment every night for the whole night. 2. Sleep hygiene with regular time in bed for at least 7.5-8 hours 3. Patient will continue modafinil 200 mg in the morning, prescription was written for 3 months with 1 refill. 4. Advised patient to remove all remaining water from humidifier canister daily and make it dry after each usage. Refill canister with fresh distilled water before each usage. 5. Watching and losing weight. 6. Precautions related to driving. No driving if feel any sleepiness. 7. I will maintain prescription for PAP supplies including mask, tube, filters. 8. Follow up visit in 6 months or earlier if patient has any problems. Thank you very much for allowing me to participate in the management of your patient. Greg Boo MD, PhD, FAASM. Diplomat of [place] [employer], Sleep Medicine Board by [place] [employer] Accounting Assistant of [facility] Objective - Vital Signs Vital Signs: Vital Signs Temp 97.8 F 08/25/24 10:48 Pulse 78 08/25/24 10:48 Resp 16 08/25/24 10:48 BP 137/75 08/25/24 10:48 Pulse Ox 100 08/25/24 10:48 FiO2 Intake & Output 08/24/24 08/25/24 08/25/24 18:59 06:59 18:59 Weight 102.965 kg Home Medications: Home Medications Medication Instructions Recorded Confirmed Type Ascorbic Acid [Vitamin C] 500 mg PO DAILY 02/24/20 06/21/24 History Atorvastatin [Lipitor] 20 mg PO HS 02/24/20 06/21/24 History Celecoxib [CeleBREX] 200 mg PO DAILY 02/24/20 06/21/24 History DULoxetine HCL [Cymbalta] 30 mg PO BID 02/24/20 06/21/24 History HYDROcodone/APAP 7.5-325MG [Bladen 1 tab PO TID PRN 02/24/20 06/21/24 History 7.5-325] dilTIAZem HCL [Cardizem CD] 360 mg PO DAILY 02/24/20 06/21/24 History flaxseed oiL [Flaxseed Oil] 3,000 mg PO DAILY 02/24/20 06/21/24 History Cholecalciferol (Vitamin D3) 125 mcg PO DAILY 10/25/20 06/21/24 History [Vitamin D3 (5000 Iu)] Enalapril Maleate [Vasotec] 10 mg PO HS 10/25/20 06/21/24 History Lecithin, Soy [Lecithin] 1,200 mg PO DAILY 10/25/20 06/21/24 History Magnesium 500 mg PO DAILY 10/25/20 06/21/24 History Tolterodine Tartrate [Detrol] 2 mg PO BID 10/25/20 06/21/24 History Calcium Carbonate/Vitamin D3 1 tab PO DAILY 01/01/23 06/21/24 History [Calcium 600 mg-D3 20 mcg (800 unit)] Cyclobenzaprine [Flexeril] 10 mg PO BID PRN 01/01/23 06/21/24 History Famotidine [Pepcid] 40 mg PO HS 01/01/23 06/21/24 History Ferrous Sulfate [Feosol] 325 mg PO DAILY 01/01/23 06/21/24 History Lansoprazole 30 mg PO DAILY 01/01/23 06/21/24 History Nf-Hemp Cbd Oil 12 drops PO DIRECTED PRN 01/01/23 06/21/24 History Vitamin A Acetate [Vitamin A] 3,000 mcg SL DAILY 01/01/23 06/21/24 History modafiniL [Provigil] 200 mg PO DAILY 01/01/23 06/21/24 History Albuterol Inhaler [Ventolin Hfa 1 puff INHALATION RT-BID 02/16/24 06/21/24 History Inhaler] Aspirin 81 mg PO DAILY 02/16/24 06/21/24 History Clobetasol Propionate [Temovate] 1 applic VAGINAL WEEKLY 02/23/24 06/21/24 History estradioL 10 mcg VAGINAL DIRECTED 02/23/24 06/21/24 History
== END ==
LOC: 3 N SLEEP 10:39
PROVIDERS: ATTEND Internal Medicine
DX: G47.33 Obstructive sleep apnea (adult) (pediatric) (principal); G47.419 Narcolepsy without cataplexy; E66.9 Obesity, unspecified; K21.9 Gastro-esophageal reflux disease without esophagitis; D24.9 Benign neoplasm of unspecified breast; Z68.41 Body mass index [BMI] 40.0-44.9, adult; Z86.69 Personal history of other diseases of the nervous system and sense organs; Z86.718 Personal history of other venous thrombosis and embolism; Z87.738 Personal history of other specified (corrected) congenital malformations of digestive system; Z96.611 Presence of right artificial shoulder joint; Z91.041 Radiographic dye allergy status; Z91.048 Other nonmedicinal substance allergy status; Z88.8 Allergy status to other drugs, medicaments and biological substances
CPT/HCPCS: 99212